=== PATIENT | male | born 1985 | race Caucasian/White ===

== ENCOUNTER 2020-10-27 23:07 | Emergency (ER) | payer MEDICAID ==
[~2020-10-27] VITALS: Ht 188 cm; Wt 90.9 kg
[2020-10-27 23:09] VITALS: BP 137/90
[2020-10-27 23:48] LABS: CLARITY,URINE CLEAR (Clear); COLOR,URINE YELLOW (Yellow); GLUCOSE, URINE NEGATIVE (Neg); KETONES,URINE NEGATIVE (Neg); LEUKOCYTE ESTERASE ,URINE NEGATIVE (Neg); NITRITES, URINE NEGATIVE (Neg); OCCULT BLOOD,URINE NEGATIVE (Neg); PROTEIN,URINE NEGATIVE (Neg)
[2020-10-28 00:10] LABS: UA COLLECTION TYPE CLN CATCH MIDSTREAM
[2020-10-28 00:46] LABS: ALANINE AMINOTRANSFERASE 51 U/L (12-78); ALBUMIN 3.5 G/DL (3.4-5.0); ALBUMIN/GLOBULIN RATIO 0.9 (1.1-1.5); ALKALINE PHOSPHATASE 92 IU/L (46-116); ANION GAP 12 (8-16); ASPARTATE AMINO TRANSFERASE 38 U/L (10-37); BILIRUBIN,TOTAL 0.7 MG/DL (0.1-1.0); BLOOD UREA NITROGEN 9 MG/DL (7-18); BUN/CREATININE RATIO 10.1 (5.4-32.0); CALCIUM 8.8 MG/DL (8.5-10.1); CHLORIDE 103 MMOL/L (99-107); CREATININE 0.89 MG/DL (0.60-1.10); GLUCOSE 106 MG/DL (70-104); LIPASE 122 U/L (73-393); POTASSIUM 3.9 MMOL/L (3.5-5.1); SODIUM 140 MMOL/L (135-145); TOTAL CARBON DIOXIDE 25.2 MMOL/L (24-32); TOTAL PROTEIN 7.6 G/DL (6.4-8.2); eGFR > 90 ML/MIN
[2020-10-28 01:06] LABS: BASOPHILS # (AUTO) 0.1 X10'3 (0-0.2); BASOPHILS % (AUTO) 0.8 % (0-1); EOSINOPHILS # (AUTO) 0.1 X10'3 (0-0.9); EOSINOPHILS % (AUTO) 0.7 % (0-6); HEMATOCRIT 50.6 % (42.0-52.0); HEMOGLOBIN 17.3 g/dl (14.0-17.9); LYMPHOCYTES # (AUTO) 1.4 X10'3 (1.1-4.8); LYMPHOCYTES % (AUTO) 12.2 % (21-51); MEAN CORPUSCULAR HEMOGLOBIN 34.1 PG (27.0-31.0); MEAN CORPUSCULAR HGB CONC 34.3 g/dL (33.0-36.5); MEAN CORPUSCULAR VOLUME 99.3 FL (78-98); MEAN PLATELET VOLUME 8.8 FL (7.4-10.4); MONOCYTES # (AUTO) 1.4 X10'3 (0-0.9); MONOCYTES % (AUTO) 12.4 % (2-12); NEUTROPHILS # (AUTO) 8.5 X10'3 (1.8-7.7); NEUTROPHILS % (AUTO) 73.9 % (42-75); PLATELET COUNT 245 X10'3 (140-440); RED BLOOD COUNT 5.09 X10'6 (4.70-6.10); RED CELL DISTRIBUTION WIDTH 12.7 % (11.5-14.5); WHITE BLOOD COUNT 11.5 X10'3 (4.5-11.0)
== END 2020-10-28 02:54 | disposition left against medical advice (07) ==
LOC: ER 23:07
DX: R10.11 Right upper quadrant pain (principal); Z53.21 Procedure and treatment not carried out due to patient leaving prior to being seen by health care provider
CPT/HCPCS: 36415; 80053; 81003; 83690; 85025

== ENCOUNTER 2021-05-22 16:11 | Emergency (ER) | payer MEDICAID ==
--- NOTE | 2021-05-22 17:34 | NUR ---
CALLED TO TRIAGE, NOT IN LOBBY
--- NOTE | 2021-05-22 18:05 | NUR ---
THIRD CALL TO TRIAGE, NOT IN LOBBY
[2021-05-23] MEDS ORDERED: NO HOME MEDS (16:40)
== END 2021-05-22 18:06 | disposition left against medical advice (07) ==
LOC: ER 16:12
DX: R10.9 Unspecified abdominal pain (principal); Z53.21 Procedure and treatment not carried out due to patient leaving prior to being seen by health care provider

== ENCOUNTER 2021-05-22 18:17 | Emergency (ER) | payer MEDICAID ==
[~2021-05-22] VITALS: Ht 188 cm; Wt 88.2 kg
[2021-05-22 18:48] VITALS: BP 159/101
[2021-05-22 19:52] LABS: ALANINE AMINOTRANSFERASE 210 U/L (12-78); ALBUMIN 4.4 G/DL (3.4-5.0); ALBUMIN/GLOBULIN RATIO 1.2 (1.1-1.5); ALKALINE PHOSPHATASE 112 IU/L (46-116); ANION GAP 12 (8-16); ASPARTATE AMINO TRANSFERASE 141 U/L (10-37); BILIRUBIN,TOTAL 1.6 MG/DL (0.1-1.0); BLOOD UREA NITROGEN 6 MG/DL (7-18); BUN/CREATININE RATIO 8.1 (5.4-32.0); CALCIUM 9.5 MG/DL (8.5-10.1); CHLORIDE 100 MMOL/L (99-107); CREATININE 0.74 MG/DL (0.60-1.10); GLUCOSE 149 MG/DL (70-104); POTASSIUM 3.7 MMOL/L (3.5-5.1); SODIUM 136 MMOL/L (135-145); TOTAL CARBON DIOXIDE 23.6 MMOL/L (24-32); TOTAL PROTEIN 8.2 G/DL (6.4-8.2); eGFR > 90 ML/MIN
[2021-05-22 20:15] LABS: LIPASE 9731 U/L (73-393)
[2021-05-22 20:24] LABS: EOSINOPHILS % (AUTO) 0 % (0-6); MEAN CORPUSCULAR VOLUME 98.4 FL (78-98); MEAN PLATELET VOLUME 9.1 FL (7.4-10.4)
[2021-05-22 20:37] LABS: BASOPHILS % (AUTO) 0.3 % (0-1); HEMATOCRIT 52.8 % (42.0-52.0); LYMPHOCYTES # (AUTO) 0.2 X10'3 (1.1-4.8); LYMPHOCYTES % (AUTO) 2.6 % (21-51); MEAN CORPUSCULAR HEMOGLOBIN 34.7 PG (27.0-31.0); MEAN CORPUSCULAR HGB CONC 35.2 g/dL (33.0-36.5); MONOCYTES # (AUTO) 0.7 X10'3 (0-0.9); MONOCYTES % (AUTO) 7.3 % (2-12); NEUTROPHILS % (AUTO) 89.8 % (42-75); PLATELET COUNT 105 X10'3 (140-440); RED BLOOD COUNT 5.37 X10'6 (4.70-6.10); RED CELL DISTRIBUTION WIDTH 13.2 % (11.5-14.5); WHITE BLOOD COUNT 8.9 X10'3 (4.5-11.0)
[2021-05-22 20:41] LABS: HEMOGLOBIN 18.6 g/dl (14.0-17.9)
[2021-05-23] MEDS ORDERED: NO HOME MEDS (16:40)
== END 2021-05-23 01:00 | disposition left against medical advice (07) ==
LOC: ER 18:18
DX: R10.9 Unspecified abdominal pain (principal); Z20.822 Contact with and (suspected) exposure to COVID-19
CPT/HCPCS: 36415; 80053; 83690; 85025

== ENCOUNTER 2021-05-23 12:46 | Inpatient (IN) | payer MEDICAID ==
[~2021-05-23] VITALS: Ht 188 cm; Wt 67.3 kg
[2021-05-23] MEDS ORDERED: normal saline 1000ML IV soln IVB ONE ×2 (14:20→16:30)
[2021-05-23] MEDS ORDERED: LORazepam 2 mg/ml vial IV ONE (15:20)
[2021-05-23] MEDS ORDERED: morphine 4 MG/ML inj SYRINge IV ONE (15:20)
[2021-05-23 15:24] LABS: EOSINOPHILS % (AUTO) 0.1 % (0-6); LYMPHOCYTES # (AUTO) 0.3 X10'3 (1.1-4.8); PLATELET COUNT 106 X10'3 (140-440); WHITE BLOOD COUNT 13.3 X10'3 (4.5-11.0)
[2021-05-23 15:25] LABS: BASOPHILS % (AUTO) 0.1 % (0-1); HEMATOCRIT 58.5 % (42.0-52.0); LYMPHOCYTES % (AUTO) 2.4 % (21-51); MEAN CORPUSCULAR VOLUME 97.1 FL (78-98); MEAN PLATELET VOLUME 9.2 FL (7.4-10.4); MONOCYTES % (AUTO) 7.4 % (2-12); RED BLOOD COUNT 6.03 X10'6 (4.70-6.10); RED CELL DISTRIBUTION WIDTH 13.7 % (11.5-14.5)
[2021-05-23 15:48] LABS: ALANINE AMINOTRANSFERASE 257 U/L (12-78); ALBUMIN 4.1 G/DL (3.4-5.0); ALKALINE PHOSPHATASE 112 IU/L (46-116); ANION GAP 15 (8-16); ASPARTATE AMINO TRANSFERASE 277 U/L (10-37); BILIRUBIN,TOTAL 2.9 MG/DL (0.1-1.0); BLOOD UREA NITROGEN 11 MG/DL (7-18); BUN/CREATININE RATIO 15.7 (5.4-32.0); CALCIUM 9.1 MG/DL (8.5-10.1); CHLORIDE 99 MMOL/L (99-107); GLUCOSE 142 MG/DL (70-104); POTASSIUM 3.6 MMOL/L (3.5-5.1); SODIUM 135 MMOL/L (135-145); TOTAL CARBON DIOXIDE 20.6 MMOL/L (24-32); TOTAL PROTEIN 8.3 G/DL (6.4-8.2); eGFR > 90 ML/MIN
[2021-05-23 16:10] LABS: HEMOGLOBIN 21.1 g/dl (14.0-17.9)
[2021-05-23 16:21] LABS: LIPASE 9509 U/L (73-393)
[2021-05-23] MEDS ORDERED: thiamine inj. 100 MG in normal saline 100ml IV soln 99 ML IV ONE (16:30)
[2021-05-23] MEDS ORDERED: phenobarbital inj 260 MG in normal saline 100ml IV soln 100 ML IV ONE (16:30)
[2021-05-23] MEDS ORDERED: magnesium 2GM in 50ml NS 50 ML IV ONE (16:30)
[2021-05-23] MEDS ORDERED: ondansetron/PF 4mg/2ml inj IV ONE (16:30)
[2021-05-23 16:37] LABS: ETHANOL < 0.010 GM/DL (0.0-0.010)
[2021-05-23] MEDS ORDERED: NO HOME MEDS (16:40)
[2021-05-23 17:05] LABS: PLATELET ESTIMATE DECREASED; SPHEROCYTES 2+
[2021-05-23 17:39] LABS: APTT 22 SECONDS (22-32)
[2021-05-23] MEDS ORDERED: potassium CL 10mEq/100ml bag 100 ML IV PRN (17:40)
[2021-05-23] MEDS ORDERED: haloperidol lactate 5mg/ml inj IM PRN (17:40)
[2021-05-23] MEDS ORDERED: LORazepam 2 mg/ml vial IV PRN (17:40)
[2021-05-23] MEDS ORDERED: potassium Cl 20 mEq SR tablet PO PRN ×2 (17:40)
[2021-05-23] MEDS ORDERED: magnesium hydroxide 30ml (MOM) UD suspension PO PRN (17:40)
[2021-05-23] MEDS ORDERED: magnesium 2GM in 50ml NS 50 ML IV PRN (17:40)
[2021-05-23] MEDS ORDERED: acetaminophen 325mg tablet PO PRN (17:40)
[2021-05-23] MEDS ORDERED: HYDROmorphone/PF 0.2 MG/ML SYRINGE IV PRN (17:40)
[2021-05-23] MEDS ORDERED: dextrose 50%-water 50ml dispensing syringe IV PRN (17:40)
[2021-05-23] MEDS ORDERED: magnesium Cl slow-release 64mg tablet PO PRN (17:40)
[2021-05-23] MEDS ORDERED: ondansetron/PF 4mg/2ml inj IV PRN (17:40)
[2021-05-23] MEDS ORDERED: HYDROmorphone inj. 0.5 MG/0.5 ML DISP.SYRIN IV PRN (17:40)
[2021-05-23] MEDS ORDERED: magnesium 4gm in 100ml NS 100 ML IV PRN (17:40)
[2021-05-23] MEDS ORDERED: mag hydrox/Alum hydrox/simeth 30ml oral suspension PO PRN (17:40)
[2021-05-23 18:04] LABS: MAGNESIUM 2.1 MG/DL (1.5-2.4)
[2021-05-23] MEDS: normal saline 1000ml 1,000 ML IV SCH (18:16)
[2021-05-23] MEDS: LORazepam 2 mg/ml vial IV PRN (18:52)
[2021-05-23] MEDS ORDERED: K and/or MAG REPLACEMENT MC SCH (20:00)
[2021-05-23] MEDS: enoxaparin 30mg/0.3ml syringe SQ SCH (20:00)
[2021-05-23] MEDS: docusate sod 100mg capsule PO SCH (20:00)
[2021-05-23] MEDS ORDERED: thiamine 100mg/ml 2ml inj. IV ONE (22:25)
[2021-05-23] MEDS: pantoprazole 40MG/NS 100ML BAG 100 ML IV SCH (22:27)
[2021-05-23] MEDS: thiamine 100mg/ml 2ml inj. IV SCH (22:45)
[2021-05-23 23:30] VITALS: BP 146/107
[2021-05-24] MEDS: normal saline 1000ml 1,000 ML IV SCH ×2 (00:20→08:17)
[2021-05-24] MEDS: LORazepam 2 mg/ml vial IV PRN (02:15)
[2021-05-24] MEDS: piperacillin/tazo 4.5gm/100ml 100 ML IV SCH ×2 (03:00→08:13)
--- NOTE | 2021-05-24 03:19 | NUR ---
Received from ER a 35 year old male/Aaox3.Pt lungs clear bilaterally. Iv site in left forearm patent with iv fluids infusing..Pt very anxious complaining of unable to drink water.Pt got up and went to tap and drink even after being informed that he is to have nothing to drink.Pt is very uncooperative at this time.Siderails up x2 and call light in reached. Voiding without difficulty noted.
[2021-05-24 06:00] VITALS: BP 139/94
--- NOTE | 2021-05-24 06:43 | NUR ---
Problems reprioritized. Patient report given, questions answered & plan of care reviewed with AKIKO.
[2021-05-24] MEDS ORDERED: folic acid 1mg/0.2ml inj IV SCH (08:00)
[2021-05-24] MEDS: pantoprazole 40MG/NS 100ML BAG 100 ML IV SCH (08:13)
[2021-05-24] MEDS: docusate sod 100mg capsule PO SCH (08:14)
[2021-05-24] MEDS: enoxaparin 30mg/0.3ml syringe SQ SCH (08:14)
[2021-05-24] MEDS: thiamine 100mg/ml 2ml inj. IV SCH (08:16)
[2021-05-24 08:34] LABS: ALANINE AMINOTRANSFERASE 225 U/L (12-78); ALBUMIN 2.9 G/DL (3.4-5.0); ALKALINE PHOSPHATASE 91 IU/L (46-116); ANION GAP 13 (8-16); ASPARTATE AMINO TRANSFERASE 239 U/L (10-37); BILIRUBIN,TOTAL 3.2 MG/DL (0.1-1.0); BLOOD UREA NITROGEN 10 MG/DL (7-18); BUN/CREATININE RATIO 16.9 (5.4-32.0); CALCIUM 6.9 MG/DL (8.5-10.1); CHLORIDE 102 MMOL/L (99-107); CREATININE 0.59 MG/DL (0.60-1.10); GLUCOSE 87 MG/DL (70-104); POTASSIUM 3.5 MMOL/L (3.5-5.1); SODIUM 135 MMOL/L (135-145); TOTAL CARBON DIOXIDE 20.5 MMOL/L (24-32); TOTAL PROTEIN 5.7 G/DL (6.4-8.2); eGFR > 90 ML/MIN
[2021-05-24 08:38] LABS: AMYLASE 719 U/L (25-115)
[2021-05-24 08:47] LABS: BASOPHILS % (AUTO) 0.1 % (0-1); EOSINOPHILS % (AUTO) 0.1 % (0-6); HEMATOCRIT 53.1 % (42.0-52.0); LYMPHOCYTES # (AUTO) 0.4 X10'3 (1.1-4.8); LYMPHOCYTES % (AUTO) 2.9 % (21-51); MEAN CORPUSCULAR HEMOGLOBIN 34.2 PG (27.0-31.0); MEAN CORPUSCULAR HGB CONC 34.4 g/dL (33.0-36.5); MEAN CORPUSCULAR VOLUME 99.3 FL (78-98); MEAN PLATELET VOLUME 10.2 FL (7.4-10.4); MONOCYTES # (AUTO) 1.5 X10'3 (0-0.9); MONOCYTES % (AUTO) 12.1 % (2-12); NEUTROPHILS # (AUTO) 10.8 X10'3 (1.8-7.7); NEUTROPHILS % (AUTO) 84.8 % (42-75); PLATELET COUNT 90 X10'3 (140-440); RED BLOOD COUNT 5.34 X10'6 (4.70-6.10); RED CELL DISTRIBUTION WIDTH 13.7 % (11.5-14.5); WHITE BLOOD COUNT 12.7 X10'3 (4.5-11.0)
--- NOTE | 2021-05-24 08:50 | NUR ---
Dr. Flores was notified about the patient leave (AMA).
--- NOTE | 2021-05-24 08:50 | NUR ---
Patient notified leave from the unit against the authorization. patient was educated about it the risk to do that. Patient refer " I need to go home no matter what" Patient signed the AMA form. Patient leave the unit alert and orient.
[2021-05-24 08:52] LABS: HEMOGLOBIN 18.3 g/dl (14.0-17.9)
[2021-05-24 08:56] LABS: LIPASE 3735 U/L (73-393)
[2021-05-24 10:08] LABS: GIANT PLATELET FEW; LARGE PLATELETS FEW; PLATELET ESTIMATE DECREASED
[2021-05-28] MEDS ORDERED: thiamine 100mg tablet PO SCH (08:00)
[2021-05-28] MEDS ORDERED: folic acid 1mg tablet PO SCH (08:00)
== END 2021-05-24 08:50 | disposition left against medical advice (07) | DRG 282 ==
LOC: ER 12:47 → ED HOLD 17:42 → PCU 3S 23:09
PROVIDERS: ADMIT Family Medicine; ATTEND Family Medicine
DX: K85.20 Alcohol induced acute pancreatitis without necrosis or infection (principal); U07.1 COVID-19; I47.1 Supraventricular tachycardia; Z53.29 Procedure and treatment not carried out because of patient's decision for other reasons; E86.0 Dehydration; R74.01 Elevation of levels of liver transaminase levels; F10.229 Alcohol dependence with intoxication, unspecified; G89.29 Other chronic pain; F10.230 Alcohol dependence with withdrawal, uncomplicated; F17.210 Nicotine dependence, cigarettes, uncomplicated; K29.80 Duodenitis without bleeding
CPT/HCPCS: 36415; 80053; 80320; 82150; 83605; 83690; 83735; 85008; 85025; 85610; 85730; 87081; 93005; 99285; C9113; G0378; J1170; J1650; J2060; J2270; J2405; J2543; J2560; J3411; J3475; J3490; J7030

== ENCOUNTER 2021-05-26 09:00 | Emergency (ER) | payer MEDICAID ==
[~2021-05-26] VITALS: Ht 188 cm; Wt 88.2 kg
[~2021-05-26 09:00] MED LIST: NO HOME MEDS
[2021-05-26] MEDS ORDERED: normal saline 1000ML IV soln IVB ONE (09:20)
[2021-05-26 09:44] LABS: ALANINE AMINOTRANSFERASE 167 U/L (12-78); ALBUMIN 2.6 G/DL (3.4-5.0); ALBUMIN/GLOBULIN RATIO 0.7 (1.1-1.5); ALKALINE PHOSPHATASE 119 IU/L (46-116); ASPARTATE AMINO TRANSFERASE 162 U/L (10-37); BILIRUBIN,TOTAL 3.2 MG/DL (0.1-1.0); BLOOD UREA NITROGEN 10 MG/DL (7-18); BUN/CREATININE RATIO 14.7 (5.4-32.0); CALCIUM 7.7 MG/DL (8.5-10.1); CHLORIDE 97 MMOL/L (99-107); CREATININE 0.68 MG/DL (0.60-1.10); GLUCOSE 100 MG/DL (70-104); LIPASE 465 U/L (73-393); SODIUM 134 MMOL/L (135-145); TOTAL PROTEIN 6.2 G/DL (6.4-8.2); eGFR > 90 ML/MIN
[2021-05-26 09:45] LABS: ANION GAP 13 (8-16); POTASSIUM 3.1 MMOL/L (3.5-5.1); TOTAL CARBON DIOXIDE 23.8 MMOL/L (24-32)
[2021-05-26 10:06] LABS: BASOPHILS % (AUTO) 0.3 % (0-1); EOSINOPHILS % (AUTO) 0 % (0-6); HEMATOCRIT 45.8 % (42.0-52.0); HEMOGLOBIN 16.1 g/dl (14.0-17.9); LYMPHOCYTES # (AUTO) 0.6 X10'3 (1.1-4.8); LYMPHOCYTES % (AUTO) 5.9 % (21-51); MEAN CORPUSCULAR HEMOGLOBIN 34.4 PG (27.0-31.0); MEAN CORPUSCULAR HGB CONC 35.1 g/dL (33.0-36.5); MEAN CORPUSCULAR VOLUME 97.9 FL (78-98); MEAN PLATELET VOLUME 9.2 FL (7.4-10.4); MONOCYTES # (AUTO) 2.5 X10'3 (0-0.9); MONOCYTES % (AUTO) 23.1 % (2-12); NEUTROPHILS # (AUTO) 7.6 X10'3 (1.8-7.7); NEUTROPHILS % (AUTO) 70.7 % (42-75); PLATELET COUNT 139 X10'3 (140-440); RED BLOOD COUNT 4.68 X10'6 (4.70-6.10); RED CELL DISTRIBUTION WIDTH 13.6 % (11.5-14.5); WHITE BLOOD COUNT 10.8 X10'3 (4.5-11.0)
[2021-05-26] MEDS ORDERED: morphine 4 MG/ML inj SYRINge IV ONE (10:25)
[2021-05-26] MEDS ORDERED: iohexol 300mg/ml 100ml inj. ONE (10:36)
--- NOTE | 2021-05-26 10:49 | NUR ---
Pat to Ct via wheelchair at this time.
[2021-05-26] MEDS ORDERED: ONDA8TAB13 PO (12:04)
--- NOTE | 2021-05-26 12:15 | NUR ---
PT HAS VOICED NO COMPLAINTS OF PAIN AT THIS TIME. PT REQUESTING ANXIETY MEDICATION STATING " I JUST DONT DO WELL IN PLACES LIKE THIS, MY BLOOD PRESSURE IS THROUGH THE ROOF." PT GIVEN JELLOW AND WATER FOR PO CHALLENGE. CURRENT BP 138/99, HR 107, 96%SPO2 ON RA.
[2021-05-26 13:05] VITALS: BP 143/97
[2021-05-26 13:24] LABS: TOTAL CELLS COUNTED 100
[2021-05-26 13:25] LABS: GIANT PLATELET FEW; LARGE PLATELETS FEW; PLATELET ESTIMATE DECREASED; TOXIC GRANULATION 2+; TOXIC VACUOLATION 3+
[2021-05-26 13:26] LABS: ANISOCYTOSIS 1+
== END 2021-05-26 13:13 | disposition home or self-care (01) ==
LOC: ER 09:01
DX: K85.20 Alcohol induced acute pancreatitis without necrosis or infection (principal); R10.32 Left lower quadrant pain; R10.31 Right lower quadrant pain; R11.10 Vomiting, unspecified; G89.29 Other chronic pain; Z79.899 Other long term (current) drug therapy
CPT/HCPCS: 36415; 74177; 80053; 83690; 85007; 85025; 96374; 99285; J2270; J7030; Q9967

== ENCOUNTER 2021-06-16 05:14 | Inpatient (IN) | payer MEDICAID ==
[~2021-06-16] VITALS: Ht 188 cm; Wt 79.1 kg
[~2021-06-16 05:14] MED LIST changes: +ONDA8TAB13 PO
[2021-06-16] MEDS ORDERED: ondansetron/PF 4mg/2ml inj IV ONE (05:45)
[2021-06-16] MEDS ORDERED: normal saline 1000ML IV soln IVB ONE (05:45)
[2021-06-16] MEDS: morphine 4 MG/ML inj SYRINge IV PRN ×2 (05:58→09:33)
[2021-06-16 06:07] LABS: BASOPHILS # (AUTO) 0.1 X10'3 (0-0.2); BASOPHILS % (AUTO) 0.7 % (0-1); EOSINOPHILS # (AUTO) 0.2 X10'3 (0-0.9); HEMATOCRIT 44.2 % (42.0-52.0); HEMOGLOBIN 15.5 g/dl (14.0-17.9); LYMPHOCYTES # (AUTO) 1.2 X10'3 (1.1-4.8); LYMPHOCYTES % (AUTO) 6.8 % (21-51); MEAN CORPUSCULAR HEMOGLOBIN 33.9 PG (27.0-31.0); MEAN CORPUSCULAR HGB CONC 35.1 g/dL (33.0-36.5); MEAN CORPUSCULAR VOLUME 96.6 FL (78-98); MEAN PLATELET VOLUME 8.1 FL (7.4-10.4); MONOCYTES # (AUTO) 1.4 X10'3 (0-0.9); MONOCYTES % (AUTO) 7.7 % (2-12); NEUTROPHILS # (AUTO) 15.3 X10'3 (1.8-7.7); NEUTROPHILS % (AUTO) 83.8 % (42-75); PLATELET COUNT 534 X10'3 (140-440); RED BLOOD COUNT 4.57 X10'6 (4.70-6.10); RED CELL DISTRIBUTION WIDTH 13.3 % (11.5-14.5); WHITE BLOOD COUNT 18.2 X10'3 (4.5-11.0)
[2021-06-16 06:13] LABS: ALANINE AMINOTRANSFERASE 40 U/L (12-78); ALBUMIN 3.5 G/DL (3.4-5.0); ALBUMIN/GLOBULIN RATIO 0.9 (1.1-1.5); ALKALINE PHOSPHATASE 122 IU/L (46-116); ANION GAP 11 (8-16); ASPARTATE AMINO TRANSFERASE 21 U/L (10-37); BLOOD UREA NITROGEN 10 MG/DL (7-18); CALCIUM 10.2 MG/DL (8.5-10.1); CHLORIDE 101 MMOL/L (99-107); CREATININE 0.83 MG/DL (0.60-1.10); ETHANOL < 0.010 GM/DL (0.0-0.010); GLUCOSE 154 MG/DL (70-104); LIPASE 358 U/L (73-393); SODIUM 133 MMOL/L (135-145); TOTAL CARBON DIOXIDE 21.1 MMOL/L (24-32); TOTAL PROTEIN 7.5 G/DL (6.4-8.2); eGFR > 90 ML/MIN
--- NOTE | 2021-06-16 06:30 | NUR ---
First contact with pt. Found supine in bed. Reports abdominal pain 12/24. Pt. appears pale and diaphoretic, is tachycardic and breathing shallow due to pain. New orders for pain meds, will carry out.
[2021-06-16] MEDS ORDERED: fentaNYL/PF 50MCG/1 ML 2ML syringe IV ONE (06:50)
[2021-06-16] MEDS ORDERED: ketorolac trometh. 30mg/ml inj. IV ONE (07:40)
[2021-06-16] MEDS ORDERED: haloperidol lactate 5mg/ml inj IM ONE (07:40)
--- NOTE | 2021-06-16 07:55 | NUR ---
Pt. appears more comfortable and reports pain 4/10 and reports being able to take deep breaths.
--- NOTE | 2021-06-16 08:03 | NUR ---
Pt. provided with ice water. Tolerated well. Will inform .
[2021-06-16] MEDS ORDERED: HYDROcodone/acetaminophen 5mg/325mg tablet PO PRN (09:00)
[2021-06-16] MEDS ORDERED: magnesium 4gm in 100ml NS 100 ML IV PRN (09:00)
[2021-06-16] MEDS ORDERED: ondansetron/PF 4mg/2ml inj IV PRN (09:00)
[2021-06-16] MEDS ORDERED: magnesium Cl slow-release 64mg tablet PO PRN (09:00)
[2021-06-16] MEDS ORDERED: acetaminophen 325mg tablet PO PRN ×2 (09:00)
[2021-06-16] MEDS ORDERED: potassium CL 10mEq/100ml bag 100 ML IV PRN (09:00)
[2021-06-16] MEDS ORDERED: magnesium 2GM in 50ml NS 50 ML IV PRN (09:00)
[2021-06-16] MEDS ORDERED: HYDROmorphone/PF 0.2 MG/ML SYRINGE IV PRN (09:00)
[2021-06-16] MEDS ORDERED: morphine 2 MG/ML inj. syringe IV PRN ×2 (09:00)
[2021-06-16] MEDS ORDERED: potassium Cl 20 mEq SR tablet PO PRN (09:00)
[2021-06-16] MEDS: nicotine 14mg patch - 24hr TD SCH (09:15)
[2021-06-16] MEDS: normal saline 1000ml 1,000 ML IV SCH ×3 (09:42→23:16)
--- NOTE | 2021-06-16 10:25 | NUR ---
telephone report to MITCHELL Treviño
[2021-06-16 10:45] VITALS: BP 149/98
[2021-06-16 12:00] VITALS: BP_SYST 149; BP_SYST 99; BP_DIAS 56; BP_DIAS 98
[2021-06-16] MEDS: piperacillin/tazo 3.375gm/50ml 50 ML IV SCH ×2 (17:18→23:15)
[2021-06-16 18:00] VITALS: BP 139/90
[2021-06-16] MEDS: heparin, porcine 5000 units/ml vial SQ SCH (19:45)
[2021-06-16] MEDS: K and/or MAG REPLACEMENT MC SCH (19:51)
[2021-06-16] MEDS: HYDROcodone/acetaminophen 10/325mg tab PO PRN (23:08)
[2021-06-17] VITALS: BP 136/83
[2021-06-17] MEDS: normal saline 1000ml 1,000 ML IV SCH ×3 (05:00→15:49)
[2021-06-17 06:15] LABS: BASOPHILS # (AUTO) 0.1 X10'3 (0-0.2); BASOPHILS % (AUTO) 0.5 % (0-1); EOSINOPHILS % (AUTO) 0.2 % (0-6); HEMATOCRIT 38.9 % (42.0-52.0); HEMOGLOBIN 13.2 g/dl (14.0-17.9); LYMPHOCYTES # (AUTO) 0.7 X10'3 (1.1-4.8); LYMPHOCYTES % (AUTO) 5.6 % (21-51); MEAN CORPUSCULAR HEMOGLOBIN 33.1 PG (27.0-31.0); MEAN CORPUSCULAR HGB CONC 33.9 g/dL (33.0-36.5); MEAN CORPUSCULAR VOLUME 97.6 FL (78-98); MEAN PLATELET VOLUME 8.5 FL (7.4-10.4); MONOCYTES # (AUTO) 1.6 X10'3 (0-0.9); MONOCYTES % (AUTO) 13.1 % (2-12); NEUTROPHILS # (AUTO) 10.1 X10'3 (1.8-7.7); NEUTROPHILS % (AUTO) 80.6 % (42-75); PLATELET COUNT 388 X10'3 (140-440); RED BLOOD COUNT 3.99 X10'6 (4.70-6.10); RED CELL DISTRIBUTION WIDTH 13.6 % (11.5-14.5); WHITE BLOOD COUNT 12.5 X10'3 (4.5-11.0)
--- NOTE | 2021-06-17 06:33 | NUR ---
Patient remains NPO as ordered, report given to the dayshift nurse for continuation of care.
[2021-06-17 06:34] LABS: ALANINE AMINOTRANSFERASE 24 U/L (12-78); ALBUMIN 2.4 G/DL (3.4-5.0); ALBUMIN/GLOBULIN RATIO 0.5 (1.1-1.5); ALKALINE PHOSPHATASE 88 IU/L (46-116); ANION GAP 12 (8-16); ASPARTATE AMINO TRANSFERASE 13 U/L (10-37); BLOOD UREA NITROGEN 12 MG/DL (7-18); BUN/CREATININE RATIO 17.9 (5.4-32.0); CALCIUM 8.8 MG/DL (8.5-10.1); CHLORIDE 106 MMOL/L (99-107); CREATININE 0.67 MG/DL (0.60-1.10); GLUCOSE 117 MG/DL (70-104); POTASSIUM 3.9 MMOL/L (3.5-5.1); SODIUM 140 MMOL/L (135-145); TOTAL CARBON DIOXIDE 22.5 MMOL/L (24-32); eGFR > 90 ML/MIN
[2021-06-17 07:05] VITALS: BP 119/74
[2021-06-17] MEDS: piperacillin/tazo 3.375gm/50ml 50 ML IV SCH ×2 (07:21→15:44)
[2021-06-17] MEDS: HYDROcodone/acetaminophen 10/325mg tab PO PRN ×3 (07:21→20:07)
[2021-06-17] MEDS: K and/or MAG REPLACEMENT MC SCH ×2 (08:00→19:19)
[2021-06-17] MEDS: heparin, porcine 5000 units/ml vial SQ SCH ×2 (08:00→20:00)
[2021-06-17] MEDS: nicotine 14mg patch - 24hr TD SCH (08:00)
[2021-06-17 11:53] VITALS: BP 144/83
[2021-06-17] MEDS: HYDROmorphone inj. 0.5 MG/0.5 ML DISP.SYRIN IV PRN (17:40)
--- NOTE | 2021-06-17 18:10 | NUR ---
Problems reprioritized. Patient report given, questions answered & plan of care reviewed with MITCHELL Lovett.
[2021-06-17 20:00] VITALS: BP 141/87
[2021-06-18] VITALS: BP_SYST 130; BP_SYST 142; BP_DIAS 81; BP_DIAS 97
[2021-06-18] MEDS: piperacillin/tazo 3.375gm/50ml 50 ML IV SCH ×3 (00:47→16:00)
[2021-06-18] MEDS: normal saline 1000ml 1,000 ML IV SCH ×4 (00:48→19:40)
[2021-06-18] MEDS: HYDROcodone/acetaminophen 10/325mg tab PO PRN ×5 (00:52→21:17)
[2021-06-18 06:30] VITALS: BP 112/66
--- NOTE | 2021-06-18 06:30 | NUR ---
Patient in room [facility]. I have received report from MITCHELL Lovett and had the opportunity to ask questions and assume patient care.
[2021-06-18] MEDS: HYDROmorphone inj. 0.5 MG/0.5 ML DISP.SYRIN IV PRN ×4 (06:58→19:04)
[2021-06-18 07:12] LABS: BASOPHILS # (AUTO) 0.1 X10'3 (0-0.2); BASOPHILS % (AUTO) 0.7 % (0-1); EOSINOPHILS # (AUTO) 0.2 X10'3 (0-0.9); EOSINOPHILS % (AUTO) 1.4 % (0-6); HEMATOCRIT 33.7 % (42.0-52.0); HEMOGLOBIN 11.7 g/dl (14.0-17.9); LYMPHOCYTES # (AUTO) 0.9 X10'3 (1.1-4.8); MEAN CORPUSCULAR HEMOGLOBIN 33.6 PG (27.0-31.0); MEAN CORPUSCULAR HGB CONC 34.6 g/dL (33.0-36.5); MEAN CORPUSCULAR VOLUME 97.3 FL (78-98); MEAN PLATELET VOLUME 8.5 FL (7.4-10.4); MONOCYTES # (AUTO) 1.4 X10'3 (0-0.9); NEUTROPHILS # (AUTO) 8.9 X10'3 (1.8-7.7); NEUTROPHILS % (AUTO) 77.9 % (42-75); PLATELET COUNT 324 X10'3 (140-440); RED BLOOD COUNT 3.47 X10'6 (4.70-6.10); WHITE BLOOD COUNT 11.4 X10'3 (4.5-11.0)
[2021-06-18 07:35] LABS: ALANINE AMINOTRANSFERASE 21 U/L (12-78); ALBUMIN 2.2 G/DL (3.4-5.0); ALBUMIN/GLOBULIN RATIO 0.6 (1.1-1.5); ALKALINE PHOSPHATASE 94 IU/L (46-116); ANION GAP 8 (8-16); ASPARTATE AMINO TRANSFERASE 12 U/L (10-37); BILIRUBIN,TOTAL 1.4 MG/DL (0.1-1.0); BLOOD UREA NITROGEN 8 MG/DL (7-18); BUN/CREATININE RATIO 13.1 (5.4-32.0); CALCIUM 8.5 MG/DL (8.5-10.1); CHLORIDE 105 MMOL/L (99-107); CREATININE 0.61 MG/DL (0.60-1.10); GLUCOSE 83 MG/DL (70-104); POTASSIUM 3.3 MMOL/L (3.5-5.1); SODIUM 135 MMOL/L (135-145); TOTAL CARBON DIOXIDE 21.9 MMOL/L (24-32); eGFR > 90 ML/MIN
[2021-06-18] MEDS: heparin, porcine 5000 units/ml vial SQ SCH ×2 (08:00→19:43)
[2021-06-18] MEDS: K and/or MAG REPLACEMENT MC SCH ×2 (08:22→20:00)
[2021-06-18] MEDS: potassium Cl 20 mEq SR tablet PO PRN ×3 (08:42→17:07)
[2021-06-18 11:00] VITALS: BP 129/90
--- NOTE | 2021-06-18 14:12 | NUR ---
DM consult: Likely intended to be malnutrition consult as pt with no h/o DM and no A1c in EMR though pt reports 2-13 lb wt loss with decreased appetite per malnutrition risk screen with RN. Current documented wt of 79.09 kg is not scaled and most recent wt hx in EMR is 67.27 from previous admit 05/24, though no documentation of how that wt was obtained. Noted pt did not report wt loss at previous admit. Pt admit for acute on chronic pancreatitis with multiple pseudocyst and EtOH, which pt reports not drinking for one month. Pt documented with average 50% PO intake while on clear liquid diet, pending documentation of first meal since diet has been advanced to regular. Per EMR pt continues with c/o abdominal pain. Pt with no documented decrease in muscle strength or edema. Pt currently lacks a minimum of two criteria for malnutrition. Will continue to follow and further monitor qualifying criteria for malnutrition. Addendum: 06/18/21 at [address] Amended: Links added.
--- NOTE | 2021-06-18 18:30 | NUR ---
Problems reprioritized. Patient report given, questions answered & plan of care reviewed with Rosina Almaguer RN.
--- NOTE | 2021-06-18 18:35 | NUR ---
Patient in room [facility]. I have received report from SIMA MEDRANO and had the opportunity to ask questions and assume patient care.
[2021-06-18 19:00] VITALS: BP 141/84
[2021-06-19] VITALS: BP 132/85
[2021-06-19] MEDS: HYDROmorphone inj. 0.5 MG/0.5 ML DISP.SYRIN IV PRN ×3 (00:22→15:08)
[2021-06-19] MEDS: piperacillin/tazo 3.375gm/50ml 50 ML IV SCH ×3 (00:22→15:42)
[2021-06-19] MEDS: HYDROcodone/acetaminophen 10/325mg tab PO PRN ×5 (03:47→20:26)
[2021-06-19] MEDS: normal saline 1000ml 1,000 ML IV SCH ×4 (03:48→23:54)
[2021-06-19 05:58] LABS: BASOPHILS # (AUTO) 0.1 X10'3 (0-0.2); BASOPHILS % (AUTO) 0.8 % (0-1); EOSINOPHILS # (AUTO) 0.2 X10'3 (0-0.9); EOSINOPHILS % (AUTO) 2.1 % (0-6); HEMATOCRIT 36.2 % (42.0-52.0); HEMOGLOBIN 12.3 g/dl (14.0-17.9); LYMPHOCYTES # (AUTO) 0.9 X10'3 (1.1-4.8); LYMPHOCYTES % (AUTO) 10.9 % (21-51); MEAN CORPUSCULAR HEMOGLOBIN 33.2 PG (27.0-31.0); MEAN CORPUSCULAR HGB CONC 34.1 g/dL (33.0-36.5); MEAN CORPUSCULAR VOLUME 97.5 FL (78-98); MEAN PLATELET VOLUME 8.5 FL (7.4-10.4); MONOCYTES # (AUTO) 1.1 X10'3 (0-0.9); MONOCYTES % (AUTO) 13.9 % (2-12); NEUTROPHILS # (AUTO) 5.7 X10'3 (1.8-7.7); NEUTROPHILS % (AUTO) 72.3 % (42-75); PLATELET COUNT 331 X10'3 (140-440); RED BLOOD COUNT 3.71 X10'6 (4.70-6.10); WHITE BLOOD COUNT 7.9 X10'3 (4.5-11.0)
--- NOTE | 2021-06-19 06:20 | NUR ---
Patient in room [facility]. I have received report from Rosina Almaguer RN and had the opportunity to ask questions and assume patient care.
--- NOTE | 2021-06-19 06:25 | NUR ---
Problems reprioritized. Patient report given, questions answered & plan of care reviewed with SIMA RN.
[2021-06-19 06:30] VITALS: BP 137/84
[2021-06-19 06:31] LABS: ALANINE AMINOTRANSFERASE 38 U/L (12-78); ALBUMIN 2.2 G/DL (3.4-5.0); ALBUMIN/GLOBULIN RATIO 0.5 (1.1-1.5); ALKALINE PHOSPHATASE 184 IU/L (46-116); ASPARTATE AMINO TRANSFERASE 52 U/L (10-37); BILIRUBIN,TOTAL 1.4 MG/DL (0.1-1.0); BLOOD UREA NITROGEN 4 MG/DL (7-18); BUN/CREATININE RATIO 7.7 (5.4-32.0); CALCIUM 8.5 MG/DL (8.5-10.1); CREATININE 0.52 MG/DL (0.60-1.10); GLUCOSE 87 MG/DL (70-104); TOTAL CARBON DIOXIDE 24.3 MMOL/L (24-32); TOTAL PROTEIN 6.3 G/DL (6.4-8.2); eGFR > 90 ML/MIN
[2021-06-19] MEDS: K and/or MAG REPLACEMENT MC SCH ×2 (08:00→20:00)
[2021-06-19] MEDS: heparin, porcine 5000 units/ml vial SQ SCH ×2 (08:00→19:47)
[2021-06-19 12:17] LABS: POTASSIUM 3.3 MMOL/L (3.3-5.1)
[2021-06-19] MEDS ORDERED: potassium CL 10mEq/100ml bag 100 ML IV PRN (12:35)
[2021-06-19] MEDS ORDERED: magnesium 2GM in 50ml NS 50 ML IV PRN (12:35)
[2021-06-19] MEDS ORDERED: magnesium Cl slow-release 64mg tablet PO PRN (12:35)
[2021-06-19] MEDS ORDERED: magnesium 4gm in 100ml NS 100 ML IV PRN (12:35)
[2021-06-19] MEDS ORDERED: potassium Cl 20 mEq SR tablet PO PRN (12:35)
[2021-06-19] MEDS: potassium Cl 20 mEq SR tablet PO PRN ×4 (12:50→20:24)
--- NOTE | 2021-06-19 18:40 | NUR ---
Problems reprioritized. Patient report given, questions answered & plan of care reviewed with MITCHELL Bartholomew.
--- NOTE | 2021-06-19 18:52 | NUR ---
REPORT RECEIVED FROM SIMA MEDRANO.
[2021-06-19 20:00] VITALS: BP 148/96
[2021-06-20] VITALS: BP 135/73
[2021-06-20] MEDS: piperacillin/tazo 3.375gm/50ml 50 ML IV SCH ×2 (00:04→09:10)
[2021-06-20] MEDS: HYDROcodone/acetaminophen 10/325mg tab PO PRN ×3 (00:07→08:43)
[2021-06-20] MEDS: normal saline 1000ml 1,000 ML IV SCH (06:20)
--- NOTE | 2021-06-20 06:45 | NUR ---
Patient in room [facility]A. I have received report from MITCHELL GAGNON and had the opportunity to ask questions and assume patient care.
[2021-06-20 07:15] LABS: BASOPHILS # (AUTO) 0.1 X10'3 (0-0.2); BASOPHILS % (AUTO) 1.1 % (0-1); EOSINOPHILS # (AUTO) 0.2 X10'3 (0-0.9); EOSINOPHILS % (AUTO) 2.6 % (0-6); HEMATOCRIT 35.9 % (42.0-52.0); HEMOGLOBIN 12.2 g/dl (14.0-17.9); LYMPHOCYTES # (AUTO) 0.9 X10'3 (1.1-4.8); LYMPHOCYTES % (AUTO) 13.5 % (21-51); MEAN CORPUSCULAR HEMOGLOBIN 33.3 PG (27.0-31.0); MEAN CORPUSCULAR HGB CONC 34.1 g/dL (33.0-36.5); MEAN CORPUSCULAR VOLUME 97.7 FL (78-98); MEAN PLATELET VOLUME 8.6 FL (7.4-10.4); MONOCYTES # (AUTO) 0.9 X10'3 (0-0.9); MONOCYTES % (AUTO) 14.3 % (2-12); NEUTROPHILS # (AUTO) 4.4 X10'3 (1.8-7.7); NEUTROPHILS % (AUTO) 68.5 % (42-75); PLATELET COUNT 322 X10'3 (140-440); RED BLOOD COUNT 3.67 X10'6 (4.70-6.10); RED CELL DISTRIBUTION WIDTH 13.1 % (11.5-14.5); WHITE BLOOD COUNT 6.4 X10'3 (4.5-11.0)
[2021-06-20 08:00] LABS: ALANINE AMINOTRANSFERASE 40 U/L (12-78); ALBUMIN 2.2 G/DL (3.4-5.0); ALBUMIN/GLOBULIN RATIO 0.6 (1.1-1.5); ALKALINE PHOSPHATASE 193 IU/L (46-116); ANION GAP 12 (8-16); ASPARTATE AMINO TRANSFERASE 36 U/L (10-37); BILIRUBIN,TOTAL 0.8 MG/DL (0.1-1.0); BLOOD UREA NITROGEN 3 MG/DL (7-18); BUN/CREATININE RATIO 5.5 (5.4-32.0); CALCIUM 8.5 MG/DL (8.5-10.1); CHLORIDE 107 MMOL/L (99-107); CREATININE 0.55 MG/DL (0.60-1.10); GLUCOSE 87 MG/DL (70-104); MAGNESIUM 1.6 MG/DL (1.5-2.4); POTASSIUM 3.8 MMOL/L (3.5-5.1); SODIUM 142 MMOL/L (135-145); TOTAL CARBON DIOXIDE 23.2 MMOL/L (24-32); TOTAL PROTEIN 6.1 G/DL (6.4-8.2); eGFR > 90 ML/MIN
[2021-06-20] MEDS: heparin, porcine 5000 units/ml vial SQ SCH (08:00)
[2021-06-20] MEDS: K and/or MAG REPLACEMENT MC SCH (08:00)
--- NOTE | 2021-06-20 08:44 | NUR ---
patient refused Heparin 5000 unit injection stating that he was getting up and walking like suggested by PT. reviewed with primary nurse.
--- NOTE | 2021-06-20 08:46 | NUR ---
Medication administration and documentation supervised by Clinical Instructor
[2021-06-20 08:49] VITALS: BP 146/103
[2021-06-20 10:25] VITALS: BP 142/101
[2021-06-20] MEDS ORDERED: AMOX-117 PO (10:27)
[2021-06-20] MEDS ORDERED: GABA100C PO (10:27)
[2021-06-20] MEDS ORDERED: TRAM50TA2 PO (10:27)
--- NOTE | 2021-06-20 11:15 | NUR ---
PATIENT STABLE AND APPROPRIATE FOR DISCHARGE, IV TAKEN OUT, EDUCATION GIVEN, NEW MEDS E-SCRIPTED TO PREFERRED PHARMACY, ALL BELONGINGS SENT WITH PATIENT, PATIENT WALKED TO LOBBY TO AN AWAITING CAR WHERE WILL TAKE PATIENT HOME
== END 2021-06-20 11:18 | disposition home or self-care (01) | DRG 282 ==
LOC: ER 05:15 → ED HOLD 09:04 → SUR 3N 10:39
PROVIDERS: ADMIT Internal Medicine; ATTEND Internal Medicine
DX: K85.90 Acute pancreatitis without necrosis or infection, unspecified (principal); E87.1 Hypo-osmolality and hyponatremia; K86.3 Pseudocyst of pancreas; G89.29 Other chronic pain; F10.20 Alcohol dependence, uncomplicated; K86.1 Other chronic pancreatitis; F17.210 Nicotine dependence, cigarettes, uncomplicated
CPT/HCPCS: 36415; 71045; 74176; 80053; 80320; 83605; 83690; 83735; 85025; 87040; 87081; 97116; 97161; 97530; 99285; G0378; J1170; J1630; J1644; J1885; J2270; J2405; J2543; J3010; J7030

== ENCOUNTER 2021-11-15 14:43 | Emergency (ER) | payer MEDICAID ==
[~2021-11-15] VITALS: Ht 182.9 cm; Wt 77.3 kg
[~2021-11-15 14:43] MED LIST changes: +GABA100C PO; -NO HOME MEDS; -ONDA8TAB13 PO
[2021-11-15 14:59] VITALS: BP 118/87
[2021-11-15 15:58] LABS: BASOPHILS # (AUTO) 0.1 X10'3 (0-0.2); EOSINOPHILS # (AUTO) 0.1 X10'3 (0-0.9); EOSINOPHILS % (AUTO) 2.3 % (0-6); HEMATOCRIT 44.9 % (42.0-52.0); HEMOGLOBIN 15.7 g/dl (14.0-17.9); LYMPHOCYTES # (AUTO) 2.3 X10'3 (1.1-4.8); LYMPHOCYTES % (AUTO) 38.3 % (21-51); MEAN CORPUSCULAR HEMOGLOBIN 31.6 PG (27.0-31.0); MEAN CORPUSCULAR HGB CONC 34.8 g/dL (33.0-36.5); MEAN CORPUSCULAR VOLUME 90.8 FL (78-98); MEAN PLATELET VOLUME 7.3 FL (7.4-10.4); MONOCYTES # (AUTO) 0.6 X10'3 (0-0.9); MONOCYTES % (AUTO) 10.4 % (2-12); NEUTROPHILS # (AUTO) 2.9 X10'3 (1.8-7.7); PLATELET COUNT 299 X10'3 (140-440); RED BLOOD COUNT 4.95 X10'6 (4.70-6.10); RED CELL DISTRIBUTION WIDTH 14.4 % (11.5-14.5)
[2021-11-15 16:12] LABS: CLARITY,URINE CLEAR (Clear); COLOR,URINE YELLOW (Yellow); GLUCOSE, URINE NEGATIVE (Neg); KETONES,URINE TRACE mg/dl (Neg); LEUKOCYTE ESTERASE ,URINE NEGATIVE (Neg); NITRITES, URINE POSITIVE (Neg); OCCULT BLOOD,URINE NEGATIVE (Neg); PH,URINE 5.5 (4.8-8.0); PROTEIN,URINE NEGATIVE (Neg); UROBILINOGEN,URINE 0.2 E.U/dL (0.2-1.0)
[2021-11-15 16:20] LABS: ALANINE AMINOTRANSFERASE 15 U/L (12-78); ALBUMIN 3.7 G/DL (3.4-5.0); ALKALINE PHOSPHATASE 70 IU/L (46-116); ANION GAP 10 (8-16); ASPARTATE AMINO TRANSFERASE 11 U/L (10-37); BILIRUBIN,TOTAL 0.4 MG/DL (0.1-1.0); BLOOD UREA NITROGEN 10 MG/DL (7-18); BUN/CREATININE RATIO 12.5 (5.4-32.0); CALCIUM 8.8 MG/DL (8.5-10.1); CHLORIDE 104 MMOL/L (99-107); GLUCOSE 91 MG/DL (70-104); LIPASE 119 U/L (73-393); POTASSIUM 3.8 MMOL/L (3.5-5.1); SODIUM 140 MMOL/L (135-145); TOTAL CARBON DIOXIDE 25.7 MMOL/L (24-32); TOTAL PROTEIN 7.5 G/DL (6.4-8.2); eGFR > 90 ML/MIN
[2021-11-15 16:29] LABS: UA COLLECTION TYPE VOIDED
[2021-11-15 16:33] LABS: HYALINE CASTS 0-3 /LPF (NEGATIVE); MUCUS STRANDS MODERATE /LPF (Neg); SQUAMOUS EPITHELIAL CELL,UR FEW /LPF (FEW)
[2021-11-15 16:34] LABS: CAL OXALATE CRYSTALS 2+ /HPF (NEGATIVE); SPERM FEW /HPF (NEGATIVE)
[2021-11-15 16:35] LABS: BACTERIA,URINE NONE SEEN /HPF (Neg); WBC,URINE 0-4 /HPF (0-4)
[2021-11-15] MEDS ORDERED: CefTRIAXone 1000mg IM Kit (w/lidocaine diluent) IM ONE (17:30)
[2021-11-15] MEDS ORDERED: sulfamethoxazole/trimethoprim DS (800/160mg) tablet PO ONE (17:30)
[2021-11-15] MEDS ORDERED: azithromycin 250mg tablet PO ONE (17:30)
[2021-11-15] MEDS ORDERED: oxyCODONE IR 5mg (immed. release) tablet PO ONE (17:40)
[2021-11-15] MEDS ORDERED: ondansetron 4mg rapidly disintigrating tab PO ONE (17:40)
[2021-11-15] MEDS ORDERED: SULF1TAB49 PO (18:15)
[2021-11-15] MEDS ORDERED: ONDA4TAB12 PO (18:16)
[2021-11-15] MEDS ORDERED: DOXY-11 PO (18:16)
[2021-11-15] MEDS ORDERED: OXYC5CAP19 PO (18:17)
== END 2021-11-15 18:34 | disposition home or self-care (01) ==
LOC: ER 14:43
DX: N45.3 Epididymo-orchitis (principal); F17.200 Nicotine dependence, unspecified, uncomplicated; F12.10 Cannabis abuse, uncomplicated; Z79.2 Long term (current) use of antibiotics; Z79.899 Other long term (current) drug therapy; Z87.19 Personal history of other diseases of the digestive system
CPT/HCPCS: 36415; 80053; 81001; 83690; 85025; 87088; 96372; 99284; J0696

== ENCOUNTER 2023-03-11 13:36 | Emergency (ER) | payer MEDICAID ==
[~2023-03-11] VITALS: Ht 188 cm; Wt 95.5 kg
[~2023-03-11 13:36] MED LIST changes: +ONDA4TAB12 PO; +OXYC5CAP19 PO
[2023-03-11 14:03] VITALS: BP 133/94; PULSE 89; RESP 18; TEMP 98.9; O2SAT 96
[2023-03-11] MEDS ORDERED: buprenorphine/naloxone 8MG-2MG SUBlingual film SL STA (16:24)
== END 2023-03-11 16:50 | disposition home or self-care (01) ==
LOC: ER 13:37
DX: F11.10 Opioid abuse, uncomplicated (principal); F17.200 Nicotine dependence, unspecified, uncomplicated; F12.10 Cannabis abuse, uncomplicated; G89.29 Other chronic pain
CPT/HCPCS: 99283

== ENCOUNTER 2023-03-23 16:30 | Emergency (ER) | payer MEDICAID ==
[~2023-03-23] VITALS: Ht 182.9 cm; Wt 97.6 kg
[2023-03-23 16:31] VITALS: BP 153/102; PULSE 84; RESP 16; TEMP 98.1; O2SAT 98
[2023-03-23 16:56] LABS: EOSINOPHILS # (AUTO) 0.1 X10'3 (0-0.9); MEAN CORPUSCULAR VOLUME 88.3 FL (78-98); MEAN PLATELET VOLUME 7.8 FL (7.4-10.4)
[2023-03-23 16:57] LABS: BASOPHILS % (AUTO) 0.3 % (0-1); EOSINOPHILS % (AUTO) 0.5 % (0-6); HEMATOCRIT 54.1 % (42.0-52.0); LYMPHOCYTES # (AUTO) 2.1 X10'3 (1.1-4.8); LYMPHOCYTES % (AUTO) 14.5 % (21-51); MEAN CORPUSCULAR HEMOGLOBIN 30.2 PG (27.0-31.0); MEAN CORPUSCULAR HGB CONC 34.2 g/dL (33.0-36.5); MONOCYTES # (AUTO) 1.3 X10'3 (0-0.9); MONOCYTES % (AUTO) 8.6 % (2-12); NEUTROPHILS # (AUTO) 11.2 X10'3 (1.8-7.7); NEUTROPHILS % (AUTO) 76.1 % (42-75); PLATELET COUNT 326 X10'3 (140-440); RED BLOOD COUNT 6.13 X10'6 (4.70-6.10); RED CELL DISTRIBUTION WIDTH 15.8 % (11.5-14.5); WHITE BLOOD COUNT 14.7 X10'3 (4.5-11.0)
[2023-03-23] MEDS ORDERED: ondansetron 4mg rapidly disintigrating tab PO ONE (17:00)
[2023-03-23 17:02] LABS: BILIRUBIN,URINE SMALL (Neg); GLUCOSE, URINE NEGATIVE (Neg); KETONES,URINE NEGATIVE (Neg); LEUKOCYTE ESTERASE ,URINE NEGATIVE (Neg); NITRITES, URINE NEGATIVE (Neg); OCCULT BLOOD,URINE NEGATIVE (Neg); PH,URINE 5.5 (4.8-8.0); PROTEIN,URINE 100 mg/dl (Neg)
[2023-03-23 17:05] LABS: CLARITY,URINE SLIGHTLY CLOUDY (Clear); COLOR,URINE DARK YELLOW (Yellow); UA COLLECTION TYPE CLN CATCH MIDSTREAM
[2023-03-23 17:07] LABS: HEMOGLOBIN 18.5 g/dl (14.0-17.9)
[2023-03-23 17:11] LABS: BACTERIA,URINE FEW /HPF (Neg); FINE GRANULAR CAST 0-3 /LPF (NEGATIVE); MUCUS STRANDS MANY /LPF (Neg); RBC,URINE 0-2 /HPF (0-2); SQUAMOUS EPITHELIAL CELL,UR FEW /LPF (FEW); WBC,URINE 0-4 /HPF (0-4)
[2023-03-23 17:12] LABS: ALANINE AMINOTRANSFERASE 43 U/L (12-78); ALBUMIN 4.7 G/DL (3.4-5.0); ALBUMIN/GLOBULIN RATIO 0.9 (1.1-1.5); ALKALINE PHOSPHATASE 136 IU/L (46-116); ANION GAP 17 (8-16); ASPARTATE AMINO TRANSFERASE 27 U/L (10-37); BILIRUBIN,TOTAL 0.9 MG/DL (0.1-1.0); BLOOD UREA NITROGEN 13 MG/DL (7-18); BUN/CREATININE RATIO 11.5 (10.0-20.0); CALCIUM 9.9 MG/DL (8.5-10.1); CHLORIDE 102 MMOL/L (99-107); CREATININE 1.13 MG/DL (0.60-1.10); GLUCOSE 117 MG/DL (70-104); LIPASE 19 U/L (16-77); POTASSIUM 3.9 MMOL/L (3.5-5.1); SODIUM 139 MMOL/L (135-145); TOTAL CARBON DIOXIDE 20.4 MMOL/L (24-32); TOTAL PROTEIN 9.9 G/DL (6.4-8.2); eCRCL 96 ML/MIN; eGFR 72 ML/MIN
[2023-03-23 17:17] LABS: ETHANOL < 10 MG/DL (<10)
[2023-03-23 17:17] LABS: URINE AMPHETAMINE SCREEN NEGATIVE (Neg); URINE BARBITUATE SCREEN NEGATIVE (Neg); URINE BENZODIAZEPINES SCREEN NEGATIVE (Neg); URINE CANNABINOID SCREEN POSITIVE (Neg); URINE COCAINE SCREEN NEGATIVE (Neg); URINE METHADONE SCREEN NEGATIVE (Neg); URINE OPIATE SCREEN NEGATIVE (Neg); URINE PHENCYCLIDINE SCREEN NEGATIVE (Neg)
[2023-03-23] MEDS ORDERED: ONDA4TAB12 PO (17:45)
== END 2023-03-23 17:57 | disposition home or self-care (01) ==
LOC: ER 16:30
DX: R50.9 Fever, unspecified (principal); R11.2 Nausea with vomiting, unspecified; F12.90 Cannabis use, unspecified, uncomplicated; G89.29 Other chronic pain; Z79.899 Other long term (current) drug therapy
CPT/HCPCS: 36415; 80053; 80305; 80320; 81001; 83690; 85025; 99283

== ENCOUNTER 2023-07-05 14:31 | Emergency (ER) | payer MEDICAID ==
[~2023-07-05] VITALS: Ht 182.9 cm; Wt 97.1 kg
[2023-07-05] MEDS ORDERED: NAPR-56 PO (14:59)
[2023-07-05] MEDS ORDERED: ONDA4TAB12 PO (14:59)
[2023-07-05] MEDS ORDERED: AMOX-117 PO (14:59)
[2023-07-05 15:12] VITALS: BP 149/102; PULSE 108; RESP 18; TEMP 98; O2SAT 94
== END 2023-07-05 15:13 | disposition home or self-care (01) ==
LOC: ER 14:31
DX: S61.452A Open bite of left hand, initial encounter (principal); F12.90 Cannabis use, unspecified, uncomplicated; Z79.899 Other long term (current) drug therapy; W55.01XA Bitten by cat, initial encounter; Y93.89 Activity, other specified; Y92.89 Other specified places as the place of occurrence of the external cause; Y99.8 Other external cause status
CPT/HCPCS: 99283

== ENCOUNTER 2024-06-27 14:01 | Emergency (ER) | payer MEDICAID ==
[~2024-06-27] VITALS: Ht 182.9 cm; Wt 87.4 kg
[~2024-06-27 14:01] MED LIST changes: +ONDA-243 PO; -ONDA4TAB12 PO; -OXYC5CAP19 PO; +OXYC5CAP22 PO
[2024-06-27 14:44] LABS: BILIRUBIN,URINE MODERATE (Neg); CLARITY,URINE CLEAR (Clear); GLUCOSE, URINE NEGATIVE (Neg); KETONES,URINE 15 mg/dl (Neg); LEUKOCYTE ESTERASE ,URINE NEGATIVE (Neg); OCCULT BLOOD,URINE NEGATIVE (Neg); PROTEIN,URINE 100 mg/dl (Neg)
[2024-06-27 14:52] LABS: UA COLLECTION TYPE CLN CATCH MIDSTREAM
[2024-06-27 14:53] LABS: COLOR,URINE DARK YELLOW (Yellow); NITRITES, URINE NEGATIVE (Neg)
[2024-06-27 15:04] LABS: BACTERIA,URINE NONE SEEN /HPF (Neg); MUCUS STRANDS MODERATE /LPF (Neg); RBC,URINE NONE SEEN /HPF (0-2); SQUAMOUS EPITHELIAL CELL,UR FEW /LPF (FEW); WBC,URINE 0-4 /HPF (0-4)
[2024-06-27 15:38] LABS: BASOPHILS # (AUTO) 0.1 X10'3 (0-0.2); BASOPHILS % (AUTO) 0.8 % (0-1); EOSINOPHILS % (AUTO) 0.3 % (0-6); HEMATOCRIT 56.5 % (42.0-52.0); LYMPHOCYTES # (AUTO) 2.2 X10'3 (1.1-4.8); LYMPHOCYTES % (AUTO) 20.7 % (21-51); MEAN CORPUSCULAR HEMOGLOBIN 36.4 PG (27.0-31.0); MEAN CORPUSCULAR HGB CONC 35.6 g/dL (33.0-36.5); MEAN CORPUSCULAR VOLUME 102.2 FL (78-98); MONOCYTES # (AUTO) 1.3 X10'3 (0-0.9); NEUTROPHILS # (AUTO) 6.9 X10'3 (1.8-7.7); NEUTROPHILS % (AUTO) 66.2 % (42-75); PLATELET COUNT 237 X10'3 (140-440); RED BLOOD COUNT 5.53 X10'6 (4.70-6.10); RED CELL DISTRIBUTION WIDTH 13.7 % (11.5-14.5); WHITE BLOOD COUNT 10.4 X10'3 (4.5-11.0)
[2024-06-27 15:54] LABS: ALANINE AMINOTRANSFERASE 137 U/L (12-78); ALBUMIN 4.5 G/DL (3.4-5.0); ALBUMIN/GLOBULIN RATIO 1.1 (1.1-1.5); ALKALINE PHOSPHATASE 103 IU/L (46-116); ANION GAP 12 (8-16); ASPARTATE AMINO TRANSFERASE 86 U/L (10-37); BILIRUBIN,TOTAL 3.3 MG/DL (0.1-1.0); BLOOD UREA NITROGEN 15 MG/DL (7-18); BUN/CREATININE RATIO 17.4 (10.0-20.0); CALCIUM 9.4 MG/DL (8.5-10.1); CHLORIDE 99 MMOL/L (99-107); CREATININE 0.86 MG/DL (0.60-1.10); GLUCOSE 99 MG/DL (70-104); LIPASE 67 U/L (16-77); SODIUM 140 MMOL/L (135-145); TOTAL CARBON DIOXIDE 28.9 MMOL/L (24-32); TOTAL PROTEIN 8.7 G/DL (6.4-8.2); eCRCL 125 ML/MIN; eGFR > 90 ML/MIN
[2024-06-27 16:09] LABS: POTASSIUM 2.8 MMOL/L (3.5-5.1)
[2024-06-27 16:12] LABS: HEMOGLOBIN 20.1 g/dl (14.0-17.9)
[2024-06-27] MEDS: LORazepam 2 mg/ml vial IV ONE (16:50)
[2024-06-27] MEDS ORDERED: iohexol 300mg/ml 100ml inj. ONE (16:52)
[2024-06-27 17:49] LABS: RED BLOOD COUNT 5.52 X10'6 (4.70-6.10); RETICULOCYTE % (AUTO) 0.8 % (0.5-1.5)
[2024-06-27 17:52] LABS: APTT 23 SECONDS (22-32); INR 1.1 INR; PROTHROMBIN TIME 11.6 SECONDS (9.0-12.0)
[2024-06-27] MEDS: diazepam 5mg tablet PO ONE (18:04)
[2024-06-27] MEDS: normal saline 1000ml 1,000 ML IV SCH (20:39)
[2024-06-27] MEDS: potassium CL 10mEq/100ml bag 100 ML IV STA (20:43)
[2024-06-27] MEDS: diazepam inj 5 MG/ML inj. IV ONE ×2 (20:54→21:37)
[2024-06-27 21:02] VITALS: BP 150/111; PULSE 83; O2SAT 98
[2024-06-27] MEDS: famotidine/PF 10 mg/ml inj IV ONE (22:45)
[2024-06-27] MEDS: pantoprazole 40 MG vial IV ONE (22:45)
[2024-06-27 22:46] VITALS: RESP 18
[2024-06-27] MEDS: ondansetron/PF 4mg/2ml inj IV ONE (22:46)
[2024-06-27] MEDS: ketorolac trometh 15mg/ml vial 15 MG/ML ML IV ONE (22:46)
[2024-06-27] MEDS: POTASSIUM BICARB 20meq eff tab 20 MEQ TABLET.EFF PO ONE (22:55)
[2024-06-27 23:06] LABS: URINE AMPHETAMINE SCREEN NEGATIVE (Neg); URINE BARBITUATE SCREEN NEGATIVE (Neg); URINE BENZODIAZEPINES SCREEN NEGATIVE (Neg); URINE CANNABINOID SCREEN POSITIVE (Neg); URINE COCAINE SCREEN NEGATIVE (Neg); URINE METHADONE SCREEN NEGATIVE (Neg); URINE OPIATE SCREEN NEGATIVE (Neg); URINE PHENCYCLIDINE SCREEN NEGATIVE (Neg)
[2024-06-27] MEDS: normal saline 1000ml 1,000 ML IV ONE (23:21)
[2024-06-27] MEDS ORDERED: POTA-207 PO (23:46)
[2024-06-27] MEDS ORDERED: ONDA-245 PO (23:46)
[2024-06-28] VITALS: TEMP 98.3
== END 2024-06-28 00:04 | disposition home or self-care (01) ==
LOC: ER 14:01
DX: D75.1 Secondary polycythemia (principal); E87.6 Hypokalemia; F41.9 Anxiety disorder, unspecified; K76.0 Fatty (change of) liver, not elsewhere classified; F12.90 Cannabis use, unspecified, uncomplicated
CPT/HCPCS: 36415; 71045; 71260; 74177; 76700; 80053; 80305; 81001; 83010; 83690; 85025; 85045; 85610; 85730; 96365; 96367; 96375; 99285; J1885; J2405; J2470; J3360; J3480; J3490; J7030; Q9967

== ENCOUNTER 2025-01-10 11:52 | Inpatient (IN) | payer MEDICAID ==
[~2025-01-10] VITALS: Ht 188 cm; Wt 93.4 kg
[~2025-01-10 11:52] MED LIST changes: +ONDA-245 PO
[2025-01-10 12:19] LABS: UA COLLECTION TYPE CLN CATCH MIDSTREAM
[2025-01-10 12:21] LABS: MUCUS STRANDS FEW /LPF (Neg); SQUAMOUS EPITHELIAL CELL,UR FEW /LPF (FEW)
[2025-01-10 12:37] LABS: CREATININE 0.72 MG/DL (0.60-1.10); TOTAL CARBON DIOXIDE 26.7 MMOL/L (24-32); eCRCL 157 ML/MIN; eGFR > 90 ML/MIN
[2025-01-10] MEDS: OLANZapine **IM** 10 mg inj. IM ONE (12:58)
[2025-01-10 13:13] LABS: MEAN PLATELET VOLUME 8.9 FL (7.4-10.4); RED CELL DISTRIBUTION WIDTH 15.2 % (11.5-14.5)
[2025-01-10] MEDS: ringers solution, lacted 1,000 ML IV ONE ×4 (13:23→18:39)
[2025-01-10] MEDS: morphine 4 MG/ML inj SYRINge IV ONE (13:40)
--- NOTE | 2025-01-10 13:55 | Physician Documentation ---
History of Present Illness Chief Complaint: Abdominal Pain w/vomiting Stated Complaint: ABDOMINAL PAIN Time Seen by MD: 12:05 Primary Medical Doctor: NO PMD Mode of Arrival: POV HPI 39 yom h/o AUD drinks 1 pint vodka daily, pancreatitis p/w abd pain. 3 nights ago was his last drink. last night developed increasing epigastric abd pain. Similar to prior flares of pancreatitis. Medication Reconciliation Allergies: Coded Allergies: No Known Allergies (Unverified , 03/11/23) Miscellaneous Medications Home Med List (No Home Medications), (Reported) Discontinued Medications Gabapentin (Neurontin), 100 MG PO HS Discontinued Reason: patient no longer taking ONDANSETRON ODT 4mg tablet (Ondansetron Odt), 1 TABLET PO Q6H Discontinued Reason: patient no longer taking ONDANSETRON ODT 4mg tablet (Ondansetron Odt), 1 TAB PO Q6H PRN PRN for nausea/vomiting Discontinued Reason: patient no longer taking ONDANSETRON ODT 4mg tablet (Ondansetron Odt), 1 TAB PO Q6H PRN PRN for nausea/vomiting Discontinued Reason: patient no longer taking Ondansetron 8mg ODT (Ondansetron Odt), 1 TAB PO Q6H Discontinued Reason: patient no longer taking Oxycodone HCl (Oxycodone HCl), 1 CAP PO TID PRN Discontinued Reason: patient no longer taking Past Medical History Past Medical History: Pancreatitis, Chronic Pain Past Surgical History: noncontributory Alcohol Use: None Drug Use: marijuana Lives with: Family Lives In: Home Occupation: employed Physical Exam Vital Signs: RN Vital Signs have been reviewed: Yes, Temperature: 98.2, Source: Oral, Heart Rate: 57, Respiratory Rate: 20, BP: 181/101, Pulse Oximetry: 96, Weight: 89.300 Oxygen Flow Rate: 0 Physical Exam Uncomfortable nontoxic Moist mucous membranes No JVD Pulmonary clear to auscultation bilaterally no wheezing rhonchi or rales Abdomen mild epigastric tenderness no guarding no rebound negative Rodriguez no right upper quadrant tenderness Lower extremity no edema Neuro awake alert oriented Progress Results/Orders Reviewed/noted all lab results: Yes Results/Orders Orders - MARLYN RICKS MD Ringers Solution, Lacted (Lactated Ringe (01/10/25 12:55) Ringers Solution, Lacted (Lactated Ringe (01/10/25 13:35) Pantoprazole 40mg Iv (Protonix 40mg Iv) (01/10/25 13:55) Page Hospitalist (01/10/25 13:51) Fill Out Med Reconciliation (01/10/25 13:51) Completed Orders - MARLYN RICKS MD Cbc/Diff (01/10/25 12:02) BMP (01/10/25 12:02) Lipase (01/10/25 12:02) CMP (01/10/25 12:02) Ua W/Microscopic, Cult If Ind (01/10/25 12:05) Olanzapine Im (Zyprexa I.M. Im On (01/10/25 12:55) Morphine 4mg/Ml Inj. (Morphine Inj.) (01/10/25 13:35) Diazepam Tablet (Valium Tablet) (01/10/25 13:35) Medications Received in ER Medications (Trade) Dose Ordered Sig/Catherine Route PRN Reason Start Time Stop Time Status Last Admin Dose Admin Lactated Ringer's 1,000 ml @ 1,000 mls/hr ONCE ONCE IV 01/10/25 12:55 01/10/25 13:54 01/10/25 13:23 1,000 MLS/HR (ZyPREXA I.M. IM ONLY) 5 mg ONCE ONCE IM 01/10/25 12:55 01/10/25 12:56 DC 01/10/25 12:58 5 MG (morphine inj.) 8 mg ONCE ONCE IV 01/10/25 13:35 01/10/25 13:36 DC 01/10/25 13:40 8 MG (Valium tablet) 5 mg ONCE ONCE PO 01/10/25 13:35 01/10/25 13:36 DC 01/10/25 13:39 5 MG Vital Signs 01/10/25 01/10/25 01/10/25 01/10/25 11:56 12:16 13:13 13:39 Temp 98.2 Pulse 76 57 Resp 16 22 20 B/P (MAP) 157/109 181/101 (127) Pulse Ox 97 96 O2 Flow Rate 0 0 Laboratory Tests Test 01/10/25 12:05 01/10/25 12:13 Urine Specimen Description Cln catch midstream Urine Color [place] Urine Clarity Clear Urine pH Urine Specific [place] Urine Protein Urine Glucose (UA) Urine Ketones Urine Occult Blood Urine Nitrite Urine Bilirubin Urine Urobilinogen Urine Leukocyte Esterase Urine RBC 0-2 Urine WBC 0-4 Urine Squamous Epithelial Cells Few Urine Bacteria None seen Urine Mucus Few Urine Culture Indicated Not ind Volume Urine Centrifuged 10 ml Urine Comment See note White Blood Count 14.8 H Red Blood Count 5.19 Hemoglobin 19.8 *H Hematocrit 56.4 H Mean Corpuscular Volume 108.5 H Mean Corpuscular Hemoglobin 38.0 H Mean Corpuscular Hemoglobin Concent 35.0 Red Cell Distribution Width 15.2 H Platelet Count 292 Mean Platelet Volume 8.9 Neutrophils (%) (Auto) 81.1 H Lymphocytes (%) (Auto) 9.7 L Monocytes (%) (Auto) 8.5 Eosinophils (%) (Auto) 0.2 Basophils (%) (Auto) 0.5 Neutrophils # (Auto) 12.0 H Lymphocytes # (Auto) 1.4 Monocytes # (Auto) 1.3 H Eosinophils # (Auto) 0.0 Basophils # (Auto) 0.1 CBC Comment Sodium Level 142 Potassium Level 3.8 Chloride Level 103 Carbon Dioxide Level 26.7 Anion Gap 12 Blood Urea Nitrogen 11 Creatinine 0.72 Estimated GFR/1.73 m2 > 90 BUN/Creatinine Ratio 15.3 Glucose Level 117 H Calcium Level 9.0 Total Bilirubin 3.8 H Aspartate Amino Transf (AST/SGOT) 92 H Alanine Aminotransferase (ALT/SGPT) 101 H Alkaline Phosphatase 160 H Total Protein 8.1 Albumin 3.6 Globulin 4.5 H Albumin/Globulin Ratio 0.8 L Lipase > 375 H Chemistry Comments EKG/XRAY/CT/US/VASC/MRI CT : Impression CT abdomen independently interpreted by myself shows no perforation Medical Decision Making Addendum Sign-out note I received sign-out on this patient at shift change. Briefly: The patient presents with alcohol withdrawal, epigastric pain, and was diagnosed with pancreatitis. He was initially went to be admitted here to the hospital, but a CT scan showed a portal venous thrombosis. There was concern that he may need IR intervention, and so plan is for IR consult for possible transfer. 7:40 p.m.: Consult: I spoke to the interventional radiology team at [facility]. They reviewed the imaging, and state that there was no need for an IR intervention. The treatment is anticoagulation only. They did not feel there is a need for transfer. 8:00 p.m.: Consult: I spoke to the internal medicine service, for admission in the hospital Ericka Collier MD Departure Disposition: ADMITTED INPATIENT Admitted to Inpatient Unit: to hospitalist Impression: Primary Impression: Acute alcoholic pancreatitis Qualified Codes: K85.20 - Alcohol induced acute pancreatitis without necrosis or infection Referrals: NO PRIMARY CARE PROVIDER (PCP) Signature Scribe Signature: na Attestation: MARLYN Yoon MD Jan 10, 2025 13:55 ERICKA COLLIER MD Jan 10, 2025 19:51
[2025-01-10] MEDS ORDERED: iohexol 300mg/ml 100ml inj. ONE (14:03)
[2025-01-10] MEDS ORDERED: NO HOME MEDS (14:06)
[2025-01-10] MEDS ORDERED: potassium Cl 20 mEq SR tablet PO PRN (14:35)
[2025-01-10] MEDS ORDERED: magnesium hydroxide 30ml (MOM) UD suspension PO PRN (14:35)
[2025-01-10] MEDS ORDERED: morphine 4 MG/ML inj SYRINge IV PRN (14:35)
[2025-01-10] MEDS ORDERED: metoclopramide 5 mg/ml inj IV PRN (14:35)
[2025-01-10] MEDS ORDERED: HYDROcodone/acetaminophen 5mg/325mg tablet PO PRN (14:35)
[2025-01-10] MEDS ORDERED: bisacodyl 10mg suppository rectal RC PRN (14:35)
[2025-01-10] MEDS ORDERED: mag hydrox/Alum hydrox/simeth 30ml oral suspension PO PRN (14:35)
[2025-01-10] MEDS ORDERED: potassium Cl 40MEQ/1/2NS 520ml 520 ML IV PRN (14:35)
[2025-01-10] MEDS ORDERED: magnesium sulf-water 2g/50mL 50 ML IV PRN (14:35)
[2025-01-10] MEDS ORDERED: magnesium sulf-water 4G/100mL 100 ML IV PRN (14:35)
[2025-01-10] MEDS ORDERED: dextrose 50%-water 50ml dispensing syringe IV PRN (14:35)
[2025-01-10] MEDS ORDERED: haloperidol lactate 5mg/ml inj IM PRN (14:35)
--- NOTE | 2025-01-10 14:52 | RADIOLOGY REPORT ---
COMPUTERIZED TOMOGRAPHY ABDOMEN AND PELVIS WITH CONTRAST REASON FOR EXAM: abdominal pain COMPARISON: CT CT CHEST ABDOMEN PELVIS IV CON W/ IV CONTRAST on DOS: 06/27/24, CT ABDOMEN PELVIS on DOS: 06/16/21, CT ABDOMEN PELVIS on DOS: 05/26/21 TECHNIQUE: The exam was performed on a Multidetector scanner. Spiral scans were acquired from the diaphragm to the symphysis pubis after administration of IV contrast. 2-D coronal and sagittal reformatted images were provided. Radiation optimization: All CT scans at this facility use at least one of these dose optimization techniques: Automated exposure control mA and/or kV adjustment per patient size (includes targeted exams where dose is matched to clinical indication) or iterative reconstruction. CONTRAST ADMINISTRATION: 100 mL omnipaque 300 intravenously RADIATION DOSE: CTDI: 21 mGy DLP: 1104 mGy-cm FINDINGS: There is minimal dependent atelectasis in bilateral lower lobes of the lungs. There is no pleural effusion. There is no pericardial effusion. The spleen is not enlarged. The liver is enlarged at 24.9 cm in length. The liver is diffusely hypoattenuating. The portal vein is patent. There is 0.7 x 1.0 x 4.7 cm wall adherent thrombus in the main portal vein that reaches the bifurcation and extends slightly into the right portal vein. The gallbladder is distended. No calcified gallstone is identified. The body and tail of the pancreas are unremarkable. There is fluid and inflammatory stranding surrounding the pancreatic head and the duodenum most consistent with acute pancreatitis. Inflammatory fluid travels inferiorly along the fascial planes into the pelvis. No organized fluid collection is identified. The urinary bladder is decompressed and is not well evaluated. The prostate and seminal vesicles are within normal limits. There is trace free fluid in the dependent pelvis. There is no significant colonic stool burden. The appendix is normal. There is no abdominal aortic aneurysm. No pathologic lymphadenopathy is identified by size criteria. There is no pathologic distention of the small bowel. No acute osseous abnormality is identified. IMPRESSION: Inflammatory stranding surrounding the pancreatic head and duodenum most consistent with acute pancreatitis. No evidence of pancreatic necrosis on the current study. No organized fluid collection identified. Nonocclusive thrombus within the main portal vein extending slightly into the right portal vein. Hepatomegaly. The liver is diffusely hypoattenuating which may be secondary to steatosis or another diffuse hepatic process. Correlate clinically and with liver function tests. Normal appendix
--- NOTE | 2025-01-10 14:55 | HISTORY AND PHYSICAL ---
History & Physical Providers to Chief complaint, abdominal pain, nausea vomiting ~ History of Present Illness Reason for Admit\Complaint: As above History of Present Illness This is a 39 yom h/o AUD, chronic alcoholism including ongoing, drinks 1 pint vodka daily, history of chronic pancreatitis, history of multiple peripancreatic cyst, hepatic steatosis, chronic tobacco abuse including currently, alcohol liver disease, hypertension poor control, presented today to emergency department chief complaint nausea vomiting associated with abdominal pain; in addition this is the patient who p/w abd pain. 3 nights ago was his last drink. last night developed increasing epigastric abd pain. In emergency department he was evaluated by physician was diagnosed with chronic alcoholism, alcohol withdrawal syndrome, acute pancreatitis, chronic pancreatitis in exacerbation, hypertensive emergency, erythrocytosis, hepatic steatosis, multiple peripancreatic cyst, and decision was made to admit patient for further evaluation and treatment,. No additional complaint or concern. Patient started on alcohol withdrawal protocol, IV fluids, Protonix, analgesics, antiemetics. Allergies: Coded Allergies: No Known Allergies (Unverified , 03/11/23) Active prescriptions No home medications Home Medications Home Medications Active Reported No Home Medications (Home Med List) Each Past Medical History Past Medical History As in HPI Past Surgical History Surgical History Comment As in HPI Past Social History Social History Comment Positive for chronic alcoholism including ongoing, deny illicit drug use positive for chronic tobacco abuse including ongoing, live with the family good social support Health Maintenance Health Maintenance Noncontributory ROS ROS Constitutional : no fever , no chills, or weakness. No diaphoresis. Allergic/Immunologic, no lymphadenopathy, no hives, no skin eruptions. Eyes, no recent visual changes, no eye pain, no photophobia. Ears, nose, mouth, throat, no sore throat, no nosebleed, no ear pain. Cardiovascular, no palpitations, skipped beats, chest pain, no peripheral edema, Respiratory, no dyspnea, orthopnea, cough, hemoptysis, chest wall pain. Gastrointestinal, positive for abdominal pain, nausea, vomiting, no constipation or diarrhea. : no dysuria, hematuria, pelvic pain, urethral d/c. Endocrine, no polyuria, polydipsia, recent unintentional weight gain or loss. Hematologic/Lymphatic, no petechiae, no enlarged lymph nodes, no bone pain. Integumentary, no rash, no skin lesions, Musculoskeletal, no muscle aches, or pain, no muscle cramps, no recent change in gait Neurological, no dizziness, no headache, no syncope, no paresthesia. Psychiatric, no delusions, visual hallucinations, or hearing hallucinations. ROS - in rest is as in HPI. Exam Vitals: Vital Signs Date Time Temp Pulse Resp B/P (MAP) Pulse Ox O2 Delivery O2 Flow Rate FiO2 01/10/25 14:16 56 22 176/103 (127) 97 0 01/10/25 11:56 98.2 Vital signs, stable ,afebrile. Pulse Oximetry reflects adequate oxygenation. BMI is 25, weight 89 kg General: well developed, well nourished. Awake , alert, and oriented x4, resting comfortably in the bed, in no acute distress . Skin: Warm, dry, no pallor, no rash or petechiae. HEENT: Atraumatic, normocephalic, EOMI, anicteric sclera B; pink conjunctiva; PERRLA, normal oropharynx, moist oral and nasal mucosa. Tympanic membrane , nose , throat clear. Neck: Trachea midline. Supple, full range of motion, no JVD, bruit , hepatojugular reflex , lymphadenopathy or masses, or other lesions Cardiac: Regular rhythm, regular rate no murmurs, rubs, or gallops. Normal S1 and S2, no S3 noticed. PMI is normal. Respiratory: Equal breath sounds bilaterally, no tachypnea; lungs clear to auscultation bilaterally, no wheezing ,rub or rales, or crackles. Chest wall is symmetric and without deformity. No signs of trauma. Chest wall is nontender. No signs of respiratory distress. Resonance is normal upon percussion bilaterally. Gastrointestinal: Abdomen symmetric, non-distended, soft, moderate tender to palpation epigastric area, normal bowel sounds x4 quadrant, normoactive, no hepatosplenomegaly , no masses , no bruit, no flank pain bilaterally. No voluntary guarding, rebound, or rigidity. No tenderness to percussion. No pulsatile masses. Equal femoral pulses. No Rodriguez's sign or McBurney point tenderness. Back; no CVA tenderness bilaterally, no deformities. Neck and back are without deformity as well. No tenderness noted on palpation of the spinous processes. Spinous processes are midline. Cervical, thoracic, and lumbar paraspinal muscles are not tender and are without spasm. : normal external genitalia, without lesions, swelling, masses or tenderness. Musculoskeletal: Extremities, normal range of motion, non-tender, muscle strength 5/5 x 4. Negative Homans signs bilaterally on lower extremity. Distal pulses full symmetrical, no clubbing, cyanosis , edema. Neurological: Speech is clear, alert, and oriented x 4. No motor or sensory deficit, deep tendon reflexes normal, cerebellar intact. Cranial nerves II-XII intact. Psych: Alert and or appropriate, normal affect. Vascular: Good distal pulses, which are equal x4; capillary refill less than 2 seconds. Lymphatic, no lymphadenopathy. Diagnostic Data Last Recorded Lab Results: 01/10/25 1213 01/10/25 1213 Advance Care Planning Advanced Care plannin - 30 Minutes Additional Plan Assessment Chronic alcoholism including ongoing Acute alcohol withdrawal syndrome Acute pancreatitis secondary to alcohol abuse Nonocclusive thrombus within the main portal vein extending slightly into the right portal vein. Hypertensive emergency Leukocytosis Erythrocytosis secondary to dehydration Alcohol liver disease associated with hepatic steatosis Chronic tobacco abuse including currently History of chronic pancreatitis secondary to alcoholism, history of multiple pancreatic cysts Plan IV fluids, antibiotics, Protonix Pain control, IV p.o. 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
[2025-01-10] MEDS: CefTRIAXone/D5W-Rocephin 1gm 50 ML IV SCH (15:18)
[2025-01-10] MEDS: diazepam inj 5 MG/ML inj. IV STA (15:28)
[2025-01-10] MEDS: diazepam inj 5 MG/ML inj. IV SCH (16:23)
[2025-01-10 16:39] LABS: PHOSPHORUS 3.3 MG/DL (2.3-4.5); PRO BRAIN NATRIURETIC PEPTIDE 235 PG/ML (0-125)
[2025-01-10 16:43] LABS: ETHANOL < 10 MG/DL (<10)
[2025-01-10 16:51] LABS: APTT 23 SECONDS (22-32); INR 1.3 INR
--- NOTE | 2025-01-10 17:46 | RADIOLOGY REPORT ---
ABDOMINAL ULTRASOUND CLINICAL HISTORY: abdominal pain TECHNIQUE: Multiple grayscale and color Doppler ultrasound images were obtained of the abdomen. WID: COMPARISON: CT CT ABDOMEN PELVIS W/ IV CONTRAST on DOS: 01/10/25, FINDINGS: Liver and Biliary System: Increased echogenicity, enlarged measuring 22 cm. No focal hepatic observations. No intrahepatic bile duct dilatation. The common duct measures 0.3 cm at the nga hepatis. The gallbladder contains pericholecystic fluid. Gallbladder wall measures 4.2 mm.. No cholelithiasis. Not well seen due to overlying bowel gas. Kidneys: The right kidney is 10.9 x 4.8 x 4.8 cm No hydronephrosis, increased echogenicity, shadowing stone, or focal lesion. IMPRESSION: 1. Diffuse hepatic steatosis. 2. Gallbladder is mildly dilated with mild adjacent fluid . No cholelithiasis
[2025-01-10 18:13] LABS: URINE AMPHETAMINE SCREEN NEGATIVE (Neg); URINE BARBITUATE SCREEN NEGATIVE (Neg); URINE BENZODIAZEPINES SCREEN NEGATIVE (Neg); URINE CANNABINOID SCREEN POSITIVE (Neg); URINE COCAINE SCREEN NEGATIVE (Neg); URINE METHADONE SCREEN NEGATIVE (Neg); URINE OPIATE SCREEN NEGATIVE (Neg); URINE PHENCYCLIDINE SCREEN NEGATIVE (Neg)
[2025-01-10] MEDS: HYDROmorphone inj. 0.5 MG/0.5 ML DISP.SYRIN IV PRN (18:33)
[2025-01-10] MEDS: ondansetron/PF 4mg/2ml inj IV PRN (19:47)
[2025-01-10] MEDS: K and/or MAG REPLACEMENT MC SCH (20:00)
[2025-01-10] MEDS: docusate sod 100mg capsule PO SCH (20:00)
[2025-01-10] MEDS ORDERED: pantoprazole 40MG/NS 100ML BAG 100 ML IV SCH (20:00)
[2025-01-10] MEDS: thiamine 100mg/ml 2ml inj. IV SCH (21:42)
[2025-01-10] MEDS: heparin, porcine 5000 units/ml vial SQ SCH (21:43)
[2025-01-10] MEDS ORDERED: ondansetron/PF 4mg/2ml inj IM ONE (23:15)
[2025-01-10] MEDS: ondansetron/PF 4mg/2ml inj IV ONE (23:24)
[2025-01-11] VITALS (7 sets, daily range): BP systolic 119–188; BP diastolic 68–106; PULSE 60–94; RESP 18–19; TEMP 97.2–97.7; O2SAT 92–98
[2025-01-11] MEDS: ondansetron 4mg rapidly disintigrating tab PO PRN (07:47)
[2025-01-11] MEDS: nicotine 21mg patch - 24 hr TD SCH (07:54)
[2025-01-11] MEDS: enoxaparin 100mg/ml syringe SUBCUT SCH ×2 (08:02→20:00)
[2025-01-11] MEDS: folic acid 1mg/0.2ml inj IV SCH (08:20)
[2025-01-11 08:38] LABS: MEAN PLATELET VOLUME 8.2 FL (7.4-10.4); RED CELL DISTRIBUTION WIDTH 14.9 % (11.5-14.5)
[2025-01-11 09:04] LABS: CHOL/HDL RATIO 3.6 (0.00-4.99); CREATININE 0.59 MG/DL (0.60-1.10); LDL CHOLESTEROL 54 MG/DL (50-100); TOTAL CARBON DIOXIDE 27.7 MMOL/L (24-32); eCRCL 192 ML/MIN; eGFR > 90 ML/MIN
[2025-01-11] MEDS: HYDROcodone/acetaminophen 10/325mg tab PO PRN (10:16)
[2025-01-11] MEDS: potassium Cl 20 mEq SR tablet PO PRN (11:14)
--- NOTE | 2025-01-11 12:59 | PROGRESS NOTE ---
Daily Progress Note Providers to CC Feels better today, less pain good sleep ~ Central Line/PICC still needed: No Quinones-Non Protocol Quinones Indications Met/Not Met: F/C Indications Not Met Antibiotic Timeout Antibiotic Ordered?: Yes MRSA Education MRSA Education Provided to pt: Yes Subjective As above Objective Vital Signs Date Time Temp Pulse Resp B/P (MAP) Pulse Ox O2 Delivery O2 Flow Rate FiO2 01/11/25 11:19 18 01/11/25 10:00 Room Air 01/11/25 07:41 59 01/11/25 06:50 154/92 (112) 95 01/11/25 06:00 97.6 01/11/25 04:30 0 Vital signs, stable ,afebrile. Pulse Oximetry reflects adequate oxygenation. General: well developed, well nourished. Awake , alert, and oriented x4, resting comfortably in the bed, in no acute distress . Skin: Warm, dry, no pallor, no rash or petechiae. HEENT: Atraumatic, normocephalic, EOMI, anicteric sclera B; pink conjunctiva; PERRLA, normal oropharynx, moist oral and nasal mucosa. Tympanic membrane , nose , throat clear. Neck: Trachea midline. Supple, full range of motion, no JVD, bruit , hepatojugular reflex , lymphadenopathy or masses, or other lesions Cardiac: Regular rhythm, regular rate no murmurs, rubs, or gallops. Normal S1 and S2, no S3 noticed. PMI is normal. Respiratory: Equal breath sounds bilaterally, no tachypnea; lungs clear to auscultation bilaterally, no wheezing ,rub or rales, or crackles. Chest wall is symmetric and without deformity. No signs of trauma. Chest wall is nontender. No signs of respiratory distress. Resonance is normal upon percussion bilaterally. Gastrointestinal: Abdomen symmetric, non-distended, soft, non-tender, normal bowel sounds x4 quadrant, normoactive, no hepatosplenomegaly , no masses , no bruit, no flank pain bilaterally. No voluntary guarding, rebound, or rigidity. No tenderness to percussion. No pulsatile masses. Equal femoral pulses. No Rodriguez's sign or McBurney point tenderness. Back; no CVA tenderness bilaterally, no deformities. Neck and back are without deformity as well. No tenderness noted on palpation of the spinous processes. Spinous processes are midline. Cervical, thoracic, and lumbar paraspinal muscles are not tender and are without spasm. : normal external genitalia, without lesions, swelling, masses or tenderness. Musculoskeletal: Extremities, normal range of motion, non-tender, muscle strength 5/5 x 4. Negative Homans signs bilaterally on lower extremity. Distal pulses full symmetrical, no clubbing, cyanosis , edema. Neurological: Speech is clear, alert, and oriented x 4. No motor or sensory deficit, deep tendon reflexes normal, cerebellar intact. Cranial nerves II-XII intact. Psych: Alert and or appropriate, normal affect. Vascular: Good distal pulses, which are equal x4; capillary refill less than 2 seconds. Lymphatic, no lymphadenopathy. Result Diagram: 01/11/25 0758 01/11/25 0758 Coagulation Studies Laboratory Tests Test 01/10/25 16:03 01/10/25 16:23 01/11/25 07:58 Prothrombin Time 12.9 SECONDS (9.0-12.0) H INR International Normalized Ratio 1.3 INR Activated Partial Thromboplast Time 23 SECONDS (22-32) Coagulation Comments Problem\Assessment\Plan Assessment Chronic alcoholism including ongoing Acute alcohol withdrawal syndrome Acute pancreatitis secondary to alcohol abuse Nonocclusive thrombus within the main portal vein extending slightly into the right portal vein. Hypertensive emergency Leukocytosis Erythrocytosis secondary to dehydration Alcohol liver disease associated with hepatic steatosis Chronic tobacco abuse including currently History of chronic pancreatitis secondary to alcoholism, history of multiple pancreatic cysts Plan IV fluids, antibiotics, Protonix Pain control, IV p.o. analgesics Lovenox 80 mg subQ b.i.d. Patient NPO Blood pressure control Additional lab work pending Substance abuse navigator consult children's service worker consult Pain control, p.o. IV analgesics Reconciled home medications DVT gastropathy prophylaxis addressed Sepsis Screening Reassessment Date: Jan 11, 2025 Date of Service: Jan 11, 2025 Billing Provider: LEXII MAYFIELD MD Common Visit Codes: [id number] INP/OBS CARE(HIGH) LEXII MAYFIELD MD Jan 11, 2025 12:59
[2025-01-11] MEDS: magnesium Cl slow-release 64mg tablet PO PRN (13:03)
[2025-01-12 02:00] VITALS: BP 94/52; PULSE 77; RESP 18; TEMP 97; O2SAT 93
[2025-01-12 06:00] VITALS: BP 101/62; PULSE 82; RESP 18; TEMP 97.9; O2SAT 95
[2025-01-12 06:42] LABS: MEAN PLATELET VOLUME 8.1 FL (7.4-10.4); RED CELL DISTRIBUTION WIDTH 14.8 % (11.5-14.5)
[2025-01-12 07:42] LABS: CREATININE 0.69 MG/DL (0.60-1.10); TOTAL CARBON DIOXIDE 23.5 MMOL/L (24-32); eCRCL 164 ML/MIN; eGFR > 90 ML/MIN
[2025-01-12] MEDS: enoxaparin 80mg/0.8ml syringe SUBCUT SCH (07:54)
[2025-01-12 11:00] VITALS: BP 107/67; PULSE 91; RESP 23; TEMP 97.6; O2SAT 96
[2025-01-12] MEDS: ringers solution, lacted 1,000 ML IV ONE (11:09)
[2025-01-12 12:30] LABS: UA COLLECTION TYPE VOIDED
[2025-01-12 12:31] LABS: MUCUS STRANDS FEW /LPF (Neg); SQUAMOUS EPITHELIAL CELL,UR FEW /LPF (FEW)
[2025-01-12 18:00] VITALS: BP 124/72; PULSE 77; RESP 16; O2SAT 95
--- NOTE | 2025-01-12 19:05 | PROGRESS NOTE ---
Daily Progress Note Providers to CC Feels better today, less abdominal pain which are well controlled with analgesics ~ Central Line/PICC still needed: No Quinones-Non Protocol Quinones Indications Met/Not Met: F/C Indications Not Met Antibiotic Timeout Antibiotic Ordered?: Yes MRSA Education MRSA Education Provided to pt: Yes Subjective As above Objective Vital Signs Date Time Temp Pulse Resp B/P (MAP) Pulse Ox O2 Delivery O2 Flow Rate FiO2 01/12/25 17:56 16 01/12/25 11:00 97.6 91 107/67 (80) 96 Room Air 01/12/25 08:00 0.0 Vital signs, stable ,afebrile. Pulse Oximetry reflects adequate oxygenation. General: well developed, well nourished. Awake , alert, and oriented x4, resting comfortably in the bed, in no acute distress . Skin: Warm, dry, no pallor, no rash or petechiae. HEENT: Atraumatic, normocephalic, EOMI, anicteric sclera B; pink conjunctiva; PERRLA, normal oropharynx, moist oral and nasal mucosa. Tympanic membrane , nose , throat clear. Neck: Trachea midline. Supple, full range of motion, no JVD, bruit , hepatojugular reflex , lymphadenopathy or masses, or other lesions Cardiac: Regular rhythm, regular rate no murmurs, rubs, or gallops. Normal S1 and S2, no S3 noticed. PMI is normal. Respiratory: Equal breath sounds bilaterally, no tachypnea; lungs clear to auscultation bilaterally, no wheezing ,rub or rales, or crackles. Chest wall is symmetric and without deformity. No signs of trauma. Chest wall is nontender. No signs of respiratory distress. Resonance is normal upon percussion bilaterally. Gastrointestinal: Abdomen symmetric, non-distended, soft, moderate tender to palpation epigastric area, normal bowel sounds x4 quadrant, normoactive, no hepatosplenomegaly , no masses , no bruit, no flank pain bilaterally. No voluntary guarding, rebound, or rigidity. No tenderness to percussion. No pulsatile masses. Equal femoral pulses. No Rodriguez's sign or McBurney point tenderness. Back; no CVA tenderness bilaterally, no deformities. Neck and back are without deformity as well. No tenderness noted on palpation of the spinous processes. Spinous processes are midline. Cervical, thoracic, and lumbar paraspinal muscles are not tender and are without spasm. : normal external genitalia, without lesions, swelling, masses or tenderness. Musculoskeletal: Extremities, normal range of motion, non-tender, muscle strength 5/5 x 4. Negative Homans signs bilaterally on lower extremity. Distal pulses full symmetrical, no clubbing, cyanosis , edema. Neurological: Speech is clear, alert, and oriented x 4. No motor or sensory deficit, deep tendon reflexes normal, cerebellar intact. Cranial nerves II-XII intact. Psych: Alert and or appropriate, normal affect. Vascular: Good distal pulses, which are equal x4; capillary refill less than 2 seconds. Lymphatic, no lymphadenopathy. Result Diagram: 01/12/25 0615 01/12/25 0615 Coagulation Studies Laboratory Tests Test 01/10/25 16:03 01/10/25 16:23 01/11/25 07:58 Prothrombin Time 12.9 SECONDS (9.0-12.0) H INR International Normalized Ratio 1.3 INR Activated Partial Thromboplast Time 23 SECONDS (22-32) Coagulation Comments Problem\Assessment\Plan Assessment Chronic alcoholism including ongoing Acute alcohol withdrawal syndrome Acute pancreatitis secondary to alcohol abuse Nonocclusive thrombus within the main portal vein extending slightly into the right portal vein. Hypertensive emergency Leukocytosis Erythrocytosis secondary to dehydration Alcohol liver disease associated with hepatic steatosis Chronic tobacco abuse including currently History of chronic pancreatitis secondary to alcoholism, history of multiple pancreatic cysts Plan IV fluids, antibiotics, Protonix Pain control, IV p.o. analgesics Lovenox 80 mg subQ b.i.d. Patient NPO Blood pressure control Additional lab work pending Substance abuse navigator consult pest control worker consult Pain control, p.o. IV analgesics Reconciled home medications DVT gastropathy prophylaxis addressed Sepsis Screening Reassessment Date: Jan 12, 2025 Date of Service: Jan 12, 2025 Billing Provider: LEXII MAYFIELD MD Common Visit Codes: [id number] INP/OBS CARE(HIGH) LEXII MAYFIELD MD Jan 12, 2025 19:05
[2025-01-12 20:00] VITALS: RESP 16; O2SAT 95
[2025-01-12 21:26] VITALS: BP 128/73; PULSE 93
[2025-01-13 01:58] VITALS: BP 119/72; PULSE 91; RESP 24; TEMP 99.6; O2SAT 94
[2025-01-13 06:59] LABS: MEAN PLATELET VOLUME 8.8 FL (7.4-10.4); RED CELL DISTRIBUTION WIDTH 15.1 % (11.5-14.5)
[2025-01-13 07:00] VITALS: BP 113/65; PULSE 85; RESP 23; TEMP 98; O2SAT 96
[2025-01-13 07:17] LABS: CREATININE 0.75 MG/DL (0.60-1.10); TOTAL CARBON DIOXIDE 27.3 MMOL/L (24-32); eCRCL 151 ML/MIN; eGFR > 90 ML/MIN
[2025-01-13] MEDS ORDERED: enoxaparin 80mg/0.8ml syringe SUBCUT SCH (08:00)
[2025-01-13] MEDS: enoxaparin 30mg/0.3ml syringe SUBCUT SCH (08:18)
[2025-01-13] MEDS: enoxaparin 60mg/0.6ml syringe SUBCUT SCH (08:19)
[2025-01-13 11:00] VITALS: BP 139/89; PULSE 84; RESP 23; TEMP 98.3; O2SAT 94
--- NOTE | 2025-01-13 14:40 | PROGRESS NOTE ---
Daily Progress Note Providers to CC ~ Antibiotic Timeout Antibiotic Ordered?: Yes Subjective No acute events overnight. Patient examined at bedside. No new complaints, not in acute distress. Patient denies chest pain, sob, palpitations, n/v/d. Patient has on-going abdominal pain. Labs notable for downtrending t.bili. Objective Vital Signs Date Time Temp Pulse Resp B/P (MAP) Pulse Ox O2 Delivery O2 Flow Rate FiO2 01/13/25 12:35 16 01/13/25 11:00 98.3 84 139/89 (106) 94 Room Air 01/13/25 08:00 0.0 Result Diagram: 01/13/2518 01/13/2518 Physical Exam General: Generalized weakness, A&Ox 3, NAD HEENT: Normocephalic, PERRLA Neck: Supple, trachea midline, no JVD Chest: Clear to auscultation bilaterally Cardiovascular: RRR, S1&S2 GI: severely tender upper quadrant abdomen with palpation; negative rebound tenderness Extremities: No cyanosis/clubbing/or edema TALENT SCOUT: CN II-XII intact, no focal deficits Musculoskeletal: No paraspinal muscle tenderness, no muscle spasm Skin: Warm and intact Coagulation Studies Laboratory Tests Test 01/10/25 16:03 01/10/25 16:23 01/11/25 07:58 Prothrombin Time 12.9 SECONDS (9.0-12.0) H INR International Normalized Ratio 1.3 INR Activated Partial Thromboplast Time 23 SECONDS (22-32) Coagulation Comments Problem\Assessment\Plan Assessment & Plan Chronic alcoholism including ongoing Acute alcohol withdrawal syndrome Acute pancreatitis secondary to alcohol abuse Portal vein thrombosis Hypertensive emergency Alcohol liver disease associated with hepatic steatosis Chronic tobacco abuse including currently History of chronic pancreatitis secondary to alcoholism, history of multiple pancreatic cysts 01/13: INR 1.3, t. bili downtrending, IV fluids, antibiotics, Lovenox, supportive care, substance abuse navigator/family welfare social work professor consult -trend CRP Date of Service: Jan 13, 2025 Billing Provider: CHARLENE CANTU Common Visit Codes: [id number] INP/OBS CARE(HIGH) CHARLENE CANTU Jan 13, 2025 14:40
[2025-01-13 15:00] VITALS: BP 127/72; PULSE 87; RESP 17; TEMP 99.7; O2SAT 96
[2025-01-13] MEDS: ringers solution, lacted 1,000 ML IV ONE (15:07)
[2025-01-13] MEDS ORDERED: magnesium sulf-water 2g/50mL 50 ML IV PRN (18:15)
[2025-01-13] MEDS ORDERED: magnesium sulf-water 4G/100mL 100 ML IV PRN (18:15)
[2025-01-13] MEDS ORDERED: potassium Cl 20 mEq SR tablet PO PRN (18:15)
[2025-01-13] MEDS ORDERED: potassium Cl 40MEQ/1/2NS 520ml 520 ML IV PRN (18:15)
[2025-01-13] MEDS: potassium Cl 20 mEq SR tablet PO PRN (19:56)
[2025-01-13] MEDS: magnesium Cl slow-release 64mg tablet PO PRN (19:56)
[2025-01-13 20:00] VITALS: RESP 19; O2SAT 94
[2025-01-13 22:08] VITALS: BP 122/79; PULSE 87; RESP 19; TEMP 99.9; O2SAT 94
[2025-01-14] VITALS (8 sets, daily range): BP systolic 106–142; BP diastolic 59–85; PULSE 80–86; RESP 13–20; TEMP 97.1–100; O2SAT 92–100
[2025-01-14 07:25] LABS: MEAN PLATELET VOLUME 9.0 FL (7.4-10.4); RED CELL DISTRIBUTION WIDTH 14.8 % (11.5-14.5)
[2025-01-14 07:53] LABS: CREATININE 0.56 MG/DL (0.60-1.10); TOTAL CARBON DIOXIDE 21.8 MMOL/L (24-32); eCRCL 202 ML/MIN; eGFR > 90 ML/MIN
--- NOTE | 2025-01-14 10:58 | PROGRESS NOTE ---
Daily Progress Note Providers to CC ~ Antibiotic Timeout Antibiotic Ordered?: Yes Subjective No acute events overnight. Patient examined at bedside. No new complaints, not in acute distress. Patient denies chest pain, sob, palpitations, n/v/d. Abdominal pain improving. Vss, labs notable for downtrending t.bili. Febrile last night, continued with IVF. Start clear liquid diet advance as tolerated. Objective Vital Signs Date Time Temp Pulse Resp B/P (MAP) Pulse Ox O2 Delivery O2 Flow Rate FiO2 01/14/25 07:36 16 01/14/25 06:00 97.1 80 108/66 (80) 92 Room Air 01/13/25 08:00 0.0 Result Diagram: 01/14/2564701/14/25647 Physical Exam General: Generalized weakness, A&Ox 3, NAD HEENT: Normocephalic, PERRLA Neck: Supple, trachea midline, no JVD Chest: Clear to auscultation bilaterally Cardiovascular: RRR, S1&S2 GI: Tender upper quadrant abdomen with palpation; negative rebound tenderness Extremities: No cyanosis/clubbing/or edema SLUMBER ROOM ATTENDANT: CN II-XII intact, no focal deficits Musculoskeletal: No paraspinal muscle tenderness, no muscle spasm Skin: Warm and intact Coagulation Studies Laboratory Tests Test 01/10/25 16:03 01/10/25 16:23 01/11/25 07:58 Prothrombin Time 12.9 SECONDS (9.0-12.0) H INR International Normalized Ratio 1.3 INR Activated Partial Thromboplast Time 23 SECONDS (22-32) Coagulation Comments Problem\Assessment\Plan Assessment & Plan Chronic alcoholism Acute alcohol withdrawal Acute pancreatitis, alcohol-induced Portal vein thrombosis Hypertensive emergency Alcohol liver disease associated with hepatic steatosis Chronic tobacco abuse including currently History of chronic pancreatitis secondary to alcoholism, history of multiple pancreatic cysts 01/13: INR 1.3, t. bili downtrending, IV fluids, antibiotics, Lovenox, supportive care, substance abuse navigator/social staff worker consult -trend CRP 01/14: febrile last night, continued with IVF, start diet. Date of Service: Jan 14, 2025 Billing Provider: CHARLENE CANTU Common Visit Codes: [id number] INP/OBS CARE(HIGH) CHARLENE CANTU Jan 14, 2025 10:58
[2025-01-14] MEDS: normal saline 1000ml 1,000 ML IV SCH (13:42)
[2025-01-15] VITALS (8 sets, daily range): BP systolic 97–125; BP diastolic 55–81; PULSE 64–87; RESP 15–24; TEMP 97.1–99.4; O2SAT 94–98
[2025-01-15 07:29] LABS: MEAN PLATELET VOLUME 8.9 FL (7.4-10.4); RED CELL DISTRIBUTION WIDTH 14.8 % (11.5-14.5)
[2025-01-15 07:50] LABS: CREATININE 0.66 MG/DL (0.60-1.10); TOTAL CARBON DIOXIDE 27.0 MMOL/L (24-32); eCRCL 171 ML/MIN; eGFR > 90 ML/MIN
[2025-01-15 08:00] LABS: BANDS% (MANUAL) 3.0 % (0-10); LYMPHOCYTES % (MANUAL) 9.0 % (21-51); MONOCYTES % (MANUAL) 20.0 % (2-12); NEUTROPHILS % (MANUAL) 68.0 % (42-75); PLATELET ESTIMATE NORMAL
[2025-01-15] MEDS: ringers solution, lacted 1,000 ML IV SCH (14:14)
--- NOTE | 2025-01-15 15:29 | PROGRESS NOTE ---
Daily Progress Note Providers to CC ~ Antibiotic Timeout Antibiotic Ordered?: Yes Subjective No acute events overnight. Patient examined at bedside. No new complaints, not in acute distress. Patient denies chest pain, sob, palpitations, n/v/d. Abdominal pain improving. Vss, fever resolved, labs notable for downtrending t.bili and CRP. Continued on IVF, not tolerating diet well yet. Advancing as tolerated. Objective Vital Signs Date Time Temp Pulse Resp B/P (MAP) Pulse Ox O2 Delivery O2 Flow Rate FiO2 01/15/25 14:13 18 01/15/25 11:00 97.1 87 117/78 (91) 97 Room Air 01/13/25 08:00 0.0 Result Diagram: 01/15/25 0647 01/15/25 0647 Physical Exam General: Generalized weakness, A&Ox 3, NAD HEENT: Normocephalic, PERRLA Neck: Supple, trachea midline, no JVD Chest: Clear to auscultation bilaterally Cardiovascular: RRR, S1&S2 GI: Tender upper quadrant abdomen with palpation; negative rebound tenderness Extremities: No cyanosis/clubbing/or edema DOCUMENTATION SUPERVISOR: CN II-XII intact, no focal deficits Musculoskeletal: No paraspinal muscle tenderness, no muscle spasm Skin: Warm and intact Coagulation Studies Laboratory Tests Test 01/10/25 16:03 01/11/25 07:58 Prothrombin Time 12.9 SECONDS (9.0-12.0) H INR International Normalized Ratio 1.3 INR Activated Partial Thromboplast Time 23 SECONDS (22-32) Coagulation Comments Problem\Assessment\Plan Assessment & Plan Chronic alcoholism Acute alcohol withdrawal Acute pancreatitis, alcohol-induced Portal vein thrombosis Hypertensive emergency Alcohol liver disease associated with hepatic steatosis Chronic tobacco abuse including currently History of chronic pancreatitis secondary to alcoholism, history of multiple pancreatic cysts 01/13: INR 1.3, t. bili downtrending, IV fluids, antibiotics, Lovenox, supportive care, substance abuse navigator/drug abuse social worker consult -trend CRP 01/14: febrile last night, continued with IVF, start diet. 01/15: fever resolved, t.bili, CRP downtrending, not tolerating diet well Date of Service: Jan 15, 2025 Billing Provider: CHARLENE CANTU Common Visit Codes: [id number] INP/OBS CARE(HIGH) CHARLENE CANTU Jan 15, 2025 15:29
[2025-01-16 04:28] LABS: MEAN PLATELET VOLUME 8.1 FL (7.4-10.4); RED CELL DISTRIBUTION WIDTH 15.0 % (11.5-14.5)
[2025-01-16 05:01] LABS: CREATININE 0.72 MG/DL (0.60-1.10); TOTAL CARBON DIOXIDE 27.0 MMOL/L (24-32); eCRCL 157 ML/MIN; eGFR > 90 ML/MIN
[2025-01-16 06:00] VITALS: BP 118/75; PULSE 80; RESP 22; TEMP 98.5; O2SAT 95
[2025-01-16 07:56] LABS: BANDS% (MANUAL) 5.0 % (0-10); EOSINOPHILS % (MANUAL) 1.0 % (0-6); LYMPHOCYTES % (MANUAL) 12.0 % (21-51); MONOCYTES % (MANUAL) 19.0 % (2-12); NEUTROPHILS % (MANUAL) 63.0 % (42-75)
[2025-01-16 07:57] LABS: PLATELET ESTIMATE NORMAL
[2025-01-16 08:00] VITALS: RESP 16
--- NOTE | 2025-01-16 09:28 | DISCHARGE SUMMARY ---
Discharge Summary Providers to CC ~ Discharge Summary Admission Diagnosis: Alcohol-induced pancreatitis, acute PVT Hospital Course DATE OF ADMISSION: 01/10/25 DATE OF DISCHARGE: 01/15/25 Discharge Diagnosis\\Comment: Chronic alcoholism Acute alcohol withdrawal Acute pancreatitis, alcohol-induced SIRS 2/2 pancreatitis- POA Acute portal vein thrombosis Hypertensive emergency Alcohol liver disease associated with hepatic steatosis Chronic tobacco abuse including currently History of chronic pancreatitis secondary to alcoholism, history of multiple pancreatic cysts 01/13: INR 1.3, t. bili downtrending, IV fluids, antibiotics, Lovenox, supportive care, substance abuse navigator/licensed clinical social worker consult -trend CRP 01/14: febrile last night, continued with IVF, start diet. 01/15: fever resolved, t.bili, CRP downtrending, not tolerating diet well Operations\\Procedures: None Consultants: None Complications: None Condition on DC: Stable New Medications: Apixaban (Eliquis) 5 Mg Tablet 5 MG PO BID for 30 Days, #60 TAB Hydrocodone Bit/Acetaminophen 5/325 MG ([place] 5/325 MG) 5 Mg/325 Mg Tablet 1 TAB PO Q6H PRN for pain for 3 Days, #12 TAB Folic Acid* (Folic Acid*) Y Tab 1 MG PO DAILY for 90 Days, #90 TAB [thiamine tablet] () 100 MG TABLET 100 MG PO DAILY for 90 Days, #90 Continued Medications: Home Med List (No Home Medications) Each Discharge Summary: History of Present Illness From H&P: "This is a 39-year-old male with history of chronic alcoholism including currently, drinks 1 pint vodka daily, history of chronic pancreatitis, history of multiple peripancreatic cyst, hepatic steatosis, chronic tobacco abuse including currently, alcohol liver disease, hypertension poor control, presented today to emergency department chief complaint nausea vomiting associated with abdominal pain; in addition this is the patient who p/w abd pain. 3 nights ago was his last drink. last night developed increasing epigastric abd pain. In emergency department he was evaluated by physician was diagnosed with chronic alcoholism, alcohol withdrawal syndrome, acute pancreatitis, chronic pancreatitis in exacerbation, hypertensive emergency, erythrocytosis, hepatic steatosis, multiple peripancreatic cyst, and decision was made to admit patient for further evaluation and treatment,. No additional complaint or concern. Patient started on alcohol withdrawal protocol, IV fluids, Protonix, analgesics, antiemetics." Hospital Course Diagnostic findings were notable for elevated lipase >3x upper limit normal, leukocytosis, transaminitis including elevated t.bili, elevated lactic acid, ultrasound of the abdomen revealing hepatic steatosis, mildly dilated gallbladder without evidence of cholelithiasis, intrahepatic bile duct dilation, or common bile duct dilation, CT abdomen/pelvis suggesting nonocclusive thrombus within the main portal vein extending slightly into the right portal vein, acute pancreatitis, hepatomegaly, hepatic steatosis, with no evidence of gallstones. Pertinent negative findings were INR of 1.3 and normal bicarb, urinalysis negative for urinary tract infection. Patient was initially treated with aggressive fluid resuscitation, anticoagulant, empirical antibiotics, benzodiazepine, thiamine, folic acid. A diet was gradually advanced from clear liquid to regular diet as tolerated. Patient did not experience further complications throughout the entire hospital stay and made a good recovery. Patient was seen and examined on the day of discharge. On day of discharge, vss and labs unremarkable. Transaminitis including t.bili downtrending. Blood cultures resulted negative. Patient tolerated regular diet well. All labs, diagnostic workups, discharge plan discussed with patient in details during visit before discharge. All questions and concerns answered to the best of my professional knowledge. Patient is to be discharged to home to self with Eliquis and to follow-up with PCP. Patient is instructed to complete hypercoagulable state workup with PCP. Physical Exam General: A&Ox 3, NAD HEENT: Normocephalic, PERRLA Neck: Supple, trachea midline, no JVD Chest: Clear to auscultation bilaterally Cardiovascular: RRR, S1&S2 GI: Soft and nontender Extremities: No cyanosis/clubbing/or edema SKULL SPLITTER: CN II-XII intact, no focal deficits Musculoskeletal: No paraspinal muscle tenderness, no muscle spasm Skin: Warm and intact *Problems/Diagnosis: (1) PVT (portal vein thrombosis) Status: Acute (2) Acute alcoholic pancreatitis Status: Acute Total Time Spent on D/C: > 30 Minutes Date of Service: Jan 16, 2025 Billing Provider: CHARLENE CANTU Common Visit Codes: [id number] DISCH DAY >30min Problem Qualifiers (1) Acute alcoholic pancreatitis: Qualified Codes: K85.20 - Alcohol induced acute pancreatitis without necrosis or infection CHARLENE CANTU Jan 16, 2025 09:28
[2025-01-16] MEDS ORDERED: FOLI1TAB27 PO (09:34)
[2025-01-16] MEDS ORDERED: APIX5TAB3 PO (09:34)
[2025-01-16] MEDS ORDERED: thiamine tablet PO (09:34)
[2025-01-16 10:00] VITALS: BP 105/59; PULSE 73; RESP 16; TEMP 97.3; O2SAT 93
[2025-01-16] MEDS: potassium Cl 20 mEq SR tablet PO STA ×2 (10:02→12:23)
[2025-01-16] MEDS ORDERED: HYDR-3965 PO (10:23)
[2025-01-16 14:18] VITALS: BP 105/70; PULSE 76; RESP 16; TEMP 99.3; O2SAT 95
[2025-01-16 14:20] VITALS: RESP 16
== END 2025-01-16 15:53 | disposition home or self-care (01) | DRG 282 ==
LOC: ER 11:52 → ED HOLD 14:40 → EDBEDREQ 01-11 03:02 → PCU 3S 01-11 07:30 → SUR 3N 01-15 14:23
PROVIDERS: ADMIT Family Medicine; ATTEND Family Medicine
PROC: BW211ZZ Computerized Tomography (CT Scan) of Abdomen and Pelvis using Low Osmolar Contrast (ICD-10-PCS; principal; 2025-01-10)
PROC: 05HA33Z Insertion of Infusion Device into Left Brachial Vein, Percutaneous Approach (ICD-10-PCS; 2025-01-15)
PROC: B54NZZA Ultrasonography of Left Upper Extremity Veins, Guidance (ICD-10-PCS; 2025-01-15)
DX: K85.20 Alcohol induced acute pancreatitis without necrosis or infection (principal); I81 Portal vein thrombosis; E87.20 Acidosis, unspecified; I16.1 Hypertensive emergency; D68.59 Other primary thrombophilia; D75.1 Secondary polycythemia; E86.0 Dehydration; R65.10 Systemic inflammatory response syndrome (SIRS) of non-infectious origin without acute organ dysfunction; K76.0 Fatty (change of) liver, not elsewhere classified; F10.239 Alcohol dependence with withdrawal, unspecified; K86.0 Alcohol-induced chronic pancreatitis; I10 Essential (primary) hypertension; Z79.01 Long term (current) use of anticoagulants; Z72.0 Tobacco use
CPT/HCPCS: 36410; 36415; 74177; 76700; 76937; 80053; 80061; 80305; 80320; 81001; 82150; 82248; 82550; 82948; 83036; 83605; 83690; 83735; 83880; 83891; 84100; 84443; 85007; 85025; 85303; 85305; 85306; 85610; 85730; 86140; 87040; 87081; 97116; 97161; 97530; 99285; A6258; C1751; G0378; J0696; J1171; J1644; J1650; J2270; J2405; J2470; J3360; J3411; J3490; J7030; J7120; Q9967